=== PATIENT | female | born 1950 | race Caucasian/White ===

== ENCOUNTER → 2017-09-29 15:15 | Outpatient (CLI) | payer MEDICARE, OTHER, SELFPAY ==
--- NOTE | 2017-09-29 15:19 | DI.RAD.S_ITS ---
PROCEDURE: XR CHEST 2V INDICATIONS: 67 y/o woman with right-sided chest pain, perceived to be in lung TECHNIQUE: 2 views of the chest were acquired. COMPARISON: None. FINDINGS: Surgical changes and devices: None. Lungs and pleura: No pleural effusions or pneumothorax. Lungs are clear. Mediastinum: Mediastinal contours are normal. Heart size is normal. Bones and chest wall: Old right fourth rib fracture is noted. No suspicious bony abnormalities. Soft tissues appear unremarkable. IMPRESSION: No acute cardiopulmonary disease. Old right fourth rib fracture. Dictated by: Aretha Gonzalez M.D. on 09/29/2017 at 16:11 Approved by: Aretha Gonzalez M.D. on 09/29/2017 at 16:14
== END ==
PROVIDERS: PCP Physician Assistant; Visit Provider Physician Assistant
DX: R07.9 Chest pain, unspecified (principal)
CPT/HCPCS: 71046

== ENCOUNTER → 2017-11-06 14:12 | Outpatient (CLI) | payer MEDICARE, OTHER, SELFPAY ==
--- NOTE | 2017-11-06 | DI.MG.S_ITS ---
BILATERAL DIGITAL DIAGNOSTIC MAMMOGRAM 3D/2D: 11/06/2017 CLINICAL: Right breast lump and pain. No prior exams were available for comparison. The tissue of both breasts is heterogeneously dense. This may lower the sensitivity of mammography. There is a 2.8 cm irregular mass with an indistinct margin and calcifications in the right breast upper outer aspect middle depth. This correlates as palpated, with a triangular marker overlying the upper outer right breast at site of palpable concern. There is architectural distortion associated with the mass. There also is a 1.6 cm oval mass posterior and superior to the mass described above, with an indistinct margin and possibly in the right axillary tail. There is a 1.5 cm oval mass with an indistinct margin in the left breast upper inner aspect middle depth. There is a biopsy clip associated with the mass. No other significant masses or calcifications are seen in either breast. IMPRESSION: INCOMPLETE: NEEDS ADDITIONAL IMAGING EVALUATION 1) The 2.8 cm irregular mass in the right breast upper outer aspect middle depth is consistent with carcinoma and is indeterminate. An ultrasound is recommended. 2) The 1.6 cm oval mass in the right axillary tail is consistent with carcinoma and is indeterminate. An ultrasound is recommended. 3) The 1.5 cm oval mass in the left breast upper inner aspect middle depth has been previously biopsied. An ultrasound is recommended for re-evaluation. This exam was interpreted at Station ID: [id number]. NOTE: For mammograms, a report in lay terms will be sent to the patient. Approximately 15% of breast malignancies will not be visualized mammographically. In the management of a palpable breast mass, a negative mammogram must not discourage biopsy of a clinically suspicious lesion. Electronically Signed By: Michael Mary M.D. ecl/:11/06/2017 18:37:42 letter sent: Additional Imaging Needed ACR BI-RADS Category 0: Incomplete [id number]
--- NOTE | 2017-11-06 | DI.US.S_ITS ---
ULTRASOUND OF RIGHT BREAST: 11/06/2017 CLINICAL: Patient returns for additional imaging over a suspected mass in the right breast. Comparison is made to exam dated: 11/06/2017 mammogram - [facility]. Real-time and Doppler ultrasound of the right breast were performed. Whitmore scale images of the real-time examination were reviewed. There is a 1.7 cm x 1.5 cm x 2.4 cm irregular mass with a spiculated margin in the right breast at 10 o'clock middle depth 8 cm from the nipple. This irregular mass is hypoechoic. This correlates as palpated and with mammography findings. Color flow imaging demonstrates that there is increased vascularity. There also is a 1 cm x 0.9 cm x 0.9 cm oval mass with a circumscribed margin in the right breast at 1 o'clock posterior depth 8 cm from the nipple. This oval mass is hypoechoic. This mass is located posterior and lateral to the above described mass. Ultrasound evaluation of the right axilla demonstrates morphologically normal lymph nodes. IMPRESSION: HIGHLY SUGGESTIVE OF MALIGNANCY - FOLLOW-UP RECOMMENDED 1) The 1.7 cm x 1.5 cm x 2.4 cm irregular mass in the right breast at 10 o'clock middle depth is consistent with carcinoma and is highly suggestive of malignancy. An ultrasound guided biopsy is recommended. 2) The 1 cm x 0.9 cm x 0.9 cm oval mass in the right breast at 10 o'clock posterior depth is consistent with carcinoma and is highly suggestive of malignancy. An ultrasound guided biopsy is recommended. 3) No right axillary lymphadenopathy identified. These results and recommendations for biopsy were discussed with the patient by [facility] radiologist Dr. Spencer Azevedo at the time of the exam. This exam was interpreted at Station ID: [id number]. Electronically Signed By: Michael Mary M.D. ecl/:11/06/2017 18:52:14 letter sent: Biopsy Required Ultrasound BI-RADS: 5 Highly suggestive of malignancy
--- NOTE | 2017-11-06 16:10 | DI.US.S_ITS ---
ULTRASOUND OF LEFT BREAST: 11/06/2017 CLINICAL: Patient returns for additional imaging over a suspected mass in the left breast. at site of previous biopsy 18 years ago. Comparison is made to exam dated: 11/06/2017 [facility]. Real-time and Doppler ultrasound of the left breast were performed. Whitmore scale images of the real-time examination were reviewed. There is a 2 cm x 1.2 cm x 1 cm irregular mass with an indistinct margin in the left breast at 10 o'clock 6 cm from the nipple. This irregular mass is hypoechoic, and has a taller than wide configuration. There is an associated biopsy clip. Color flow imaging demonstrates that there is increased vascularity in surrounding tissue. IMPRESSION: INCOMPLETE: NEEDS ADDITIONAL IMAGING EVALUATION - FOLLOW-UP RECOMMENDED The 2 cm x 1.2 cm x 1 cm irregular mass in the left breast is indeterminate and demonstrates an associated biopsy clip on mammography, but no prior comparison imaging is available. This mass is at a low suspicion for malignancy given its appearance, particularly given the findings on right breast ultrasound and mammography performed concurrently. Biopsy of this lesion is deferred pending pathology results of the masses seen on right breast ultrasound. Correlation with outside prior films and ultrasounds recommended; an addendum to this report can be issued if prior comparison exams become available for review. This exam was interpreted at Station ID: [id number]. Electronically Signed By: Michael Mary M.D. ecl/:11/07/2017 06:43:50 Entry: - 11/07/2017 06:43:50 letter sent: Comparison Films Needed Ultrasound BI-RADS: 0 Indeterminate
== END ==
PROVIDERS: Visit Provider Physician Assistant
DX: R92.8 Other abnormal and inconclusive findings on diagnostic imaging of breast (principal); N63.11 Unspecified lump in the right breast, upper outer quadrant; N63.22 Unspecified lump in the left breast, upper inner quadrant; N64.4 Mastodynia
CPT/HCPCS: 76642; 77066; G0279

== ENCOUNTER → 2017-11-08 11:02 | Outpatient (CLI) | payer MEDICARE, OTHER, SELFPAY ==
[2017-11-08 12:39] LABS: Alanine Aminotransferase 46 IU/L (9-52); Albumin 4.5 g/dL (3.5-5.0); Albumin Globulin Ratio 1.6 (1.0-2.8); Alkaline Phosphatase 72 U/L (38-126); Aspartate Aminotransferase 43 IU/L (14-36); BUN Creatinine Ratio 12.9 (6-22); Bilirubin Total 0.7 mg/dL (0.2-1.3); Blood Urea Nitrogen 9 mg/dL (7-17); Calcium 9.6 mg/dL (8.4-10.2); Carbon Dioxide 29 mmol/L (22-32); Chloride 100 mmol/L (98-107); Cholesterol 260 mg/dL (140-199); Estimated Glomerular Filt Rate > 60.0 mL/min (>60); Globulin 2.9 g/dL (1.7-4.1); Glucose 108 mg/dL (80-110); HDL Cholesterol 79 mg/dL (40-60); HEMOLYSIS < 15 (0-50); LDL Cholesterol Calculated 152 mg/dL (<100); Potassium 4.1 mmol/L (3.4-5.1); Sodium 139 mmol/L (137-145); Total Protein 7.4 g/dL (6.3-8.2); Triglycerides 145 mg/dL (35-150)
[2017-11-08 12:56] LABS: Thyroid Stimulating Hormone 1.92 uIU/mL (0.47-4.68)
[2017-11-08 15:37] LABS: Microalbumi Creatinin Ratio Ur 19.1 ug/mg CR (<30); Microalbumin Urine Random 2.3 mg/dL (0-1.6)
== END ==
PROVIDERS: Visit Provider Physician Assistant
DX: E78.5 Hyperlipidemia, unspecified (principal); I10 Essential (primary) hypertension
CPT/HCPCS: 36415; 80053; 80061; 82043; 82570; 84443

== ENCOUNTER → 2017-11-13 13:40 | Outpatient (CLI) | payer MEDICARE, OTHER, SELFPAY ==
--- NOTE | 2017-11-13 | PATH_ITS ---
[facility] Accession Number: [id number] . 01 Material submitted: . PART A: LARGE RIGHT BREAST MASS PART B: SMALL RIGHT BREAST MASS . 01 Clinical history: . A: LARGE RIGHT BREAST MASS 10:00 8 CM FN B: SMALL RIGHT BREAST MASS 10:00 8CM FN . 02 Diagnosis: A. Right Breast Needle Core Biopsy (Large Tumor): Infiltrating ductal carcinoma with the following features: 1. Tumor size: Largest single focus measures 1.5 cm (all six cores involved with tumor). 2. Tumor grade: [place] grade 2 of 3 (score 6 of 9). Nuclear grade: Intermediate (score 2 of 3). Mitotic rate: Low (score 1 of 3). Tubular differentiation: Absent (score 3 of 3). 3. In situ carcinoma: Not identified. 4. Lymph/vascular invasion: Negative. 5. Hormone receptor studies: Estrogen receptor: Positive (100% cells staining with strong intensity). Progesterone receptor: Positive (10%-20% of cells staining with moderate intensity). HER-2/cisco: Negative (0 score). . B. Right Breast Needle Core Biopsy (Small Tumor): Infiltating ductal carcinoma with the following features: 1. Tumor size: Largest single area of invasion measures 1 cm (all six cores involved with tumor). 2. Tumor grade: [place] grade 2 of 3 (score 6 of 9). Nuclear grade: Intermediate (score 2 of 3). Mitotic rate: Low (score 1 of 3). Tubular differentiation: Absent (score 3 of 3). 3. In situ carcinoma: Not identified. 4. Lymph/vascular invasion: Not identified. 5. Hormone receptor studies: Estrogen receptor: Positive (100% of cells staining with strong intensity). Progesterone receptor: Negative (0% of cells staining). HER-2/cisco: Negative (score 0). [facility] . 02 Electronically signed: . Reilly Alvarado MD, Pathologist NPI- [id number] . 01 Gross description: . (A) Received in formalin, labeled BX breast PERC W VAC device, are six core biopsies of fibrofatty tissue (lengths-each approximately 1.5 cm, diameters-each approximately 2.0 cm). Entirely submitted in cassette A1. (B) Received in formalin, labeled BX breast PERC W VAC device, are six core biopsies of fibrous rubbery tissue (lengths-0.5 cm up to 1.4 cm, diameters-0.1 cm up to 0.2 cm) and multiple fragments of hemorrhagic tissue (2.5 x 2.2 x 0.5 cm in aggregate). The core biopsies are submitted in cassette B1 and the remaining hemorrhagic tissue is entirely submitted in cassette B2. . Note: Approximate total fixation time in formalin for both specimens - 30 hours, calculated using a collection date of 11/13/2017 with collection times of 1450 and 1458, respectively. ([id number]) /MRV . 02 Microscopic: . Sections are of needle core biopsies from the right breast which are stated to be from a large tumor and a small tumor (parts A and B). The histologic characteristics of the tumor are essentially similar in both specimens. The tumor cells are of intermediate size with hyperchromatic nuclei and sparse cytoplasm. The cells infiltrate in a single file pattern as well as in small groups and in part B there are broad sheets of tumor cells. Because of this pattern immunohistochemistry is performed in order to rule out the possibility of lobular carcinoma (see immunohistochemistry results). The tumor cell nuclei are considered to be of intermediate grade. There is a low mitotic rate and tubular differentiation is absent. There is no evidence of vascular channel invasion or lymphatic channel invasion and there is no in situ carcinoma present in either specimen. . IMMUNOHISTOCHEMISTRY RESULTS: E-cadherin: Strongly positive in both parts A and B, which rules against a lobular carcinoma. . 02 Pathologist provided ICD-10: C50.911 . 02 CPT . 997796, [id number], Z23446, [id number] Performed at: 01 [facility] [address] [place] [address] [address], [place], [place] [id number] MD Caleb Cheng MD Phone: [phone] Performed at: 02 [facility] [id number] [place] [id number] MD Parker Card MD Phone: [phone]
--- NOTE | 2017-11-13 13:45 | DI.US.S_ITS ---
MULTIPLE ULTRASOUND GUIDED BIOPSIES RIGHT BREAST USING VACUUM DEVICE WITH MARKING DEVICES INSERTED AND POST MAMMOGRAPHIC AND ULTRASOUND IMAGIN11/13/2017 CLINICAL: Right breast mass x 2. PATIENT CONSENT: Risks (minor bleeding, infection, vasovagal reaction and repeat procedure), benefits and alternatives were explained to the patient and written informed consent was obtained. Correlation is made to exams dated[facility]2017 [facility] An [facility] guided biopsy using real-time ultrasound was performed for the mass located in the right breast at 10 o'clock middle depth. The skin was prepped in the usual manner. Local anesthetic was administered to the access site. A small incision was made in the breast. The abnormality was approached from the lateral aspect. A biopsy needle was placed adjacent to the abnormality under ultrasound guidance. Once the needle was documented to be in the correct location, a specimen was obtained using the Mammotome biopsy system.However due to the density of the mass additoinal samples were obtained with a 16 G device. A celero clip was inserted into the biopsy cavity. Post procedure mammographic and ultrasound imaging demonstrates the clip at the targeted area. The specimen was sent to the laboratory for pathological analysis. A second ultrasound guided biopsy using real-time ultrasound was performed for the mass located in the right breast at 10 o'clock posterior depth. The skin was prepped in the usual manner. Local anesthetic was administered to the access site. A small incision was made in the breast. The abnormality was approached from the lateral aspect. A biopsy needle was placed adjacent to the abnormality under ultrasound guidance. Once the needle was documented to be in the correct location, a specimen was obtained using the Mammotome biopsy system. A 4HM clip was inserted into the biopsy cavity. Post procedure mammographic and ultrasound imaging demonstrates the clip at the targeted area. The specimen was sent to the laboratory for pathological analysis. IMPRESSION: ULTRASOUND GUIDED BIOPSY MALIGNANT Ultrasound guided biopsy of the mass in the right breast at 10 o'clock middle depth was successful with no apparent post procedure complications. Final pathology of this lesion identified infiltrating ductal carcinoma. This is concordant with imaging. Surgical and oncologic consultation and follow-up recommended for potential excision and treatment. These results will be communicated to the patient's referring provider. Ultrasound guided biopsy of the mass in the right breast at 10 o'clock posterior depth was successful with no apparent post procedure complications. Final pathology of this lesion identified infiltrating ductal carcinoma. This is concordant with imaging. Surgical and oncologic consultation and follow-up recommended for potential excision and treatment. These results will be communicated to the patient's referring provider. A mass was identified in the left breast and described on left breast ultrasound of 11/06/2017. Consider further evaluation or biopsy if there is clinical concern for this left breast mass being an additional site of disease. This exam was interpreted at Station ID: [id number]. Donal Mary M.D. ,ecl/:11/20/2017 18:31:35
--- NOTE | 2017-11-13 13:45 | DI.MG.S_ITS ---
UNILATERAL RIGHT DIGITAL DIAGNOSTIC MAMMOGRAM POST-NEEDLE BIOPSY: 11/13/2017 CLINICAL: Post right breast ultrasound biopsy clip placement imaging. Comparison is made to exam dated: 11/06/2017 mammogram - [facility]. The tissue of the right breast is heterogeneously dense. This may lower the sensitivity of mammography. IMPRESSION: POST PROCEDURE MAMMOGRAM FOR MARKER PLACEMENT There are two post biopsy markers in the appropriate locations. This exam was interpreted at Station ID: [id number]. NOTE: For mammograms, a report in lay terms will be sent to the patient. Approximately 15% of breast malignancies will not be visualized mammographically. In the management of a palpable breast mass, a negative mammogram must not discourage biopsy of a clinically suspicious lesion. Electronically Signed By: Donal Prado M.D. cj/:11/14/2017 08:07:45 Entry: - 11/14/2017 08:07:45 ACR BI-RADS Category Post-procedure mammogram for marker placement
== END ==
PROVIDERS: Visit Provider Physician Assistant
DX: R92.8 Other abnormal and inconclusive findings on diagnostic imaging of breast (principal); N63.10 Unspecified lump in the right breast, unspecified quadrant
CPT/HCPCS: 19083; 19084; 77065

== ENCOUNTER → 2017-11-25 10:36 | Outpatient (CLI) | payer MEDICARE, OTHER, SELFPAY ==
--- NOTE | 2017-11-25 11:02 | DI.NM.S_ITS ---
PROCEDURE: NM BONE SCAN WHOLE BODY RADIOPHARMACEUTICAL: 20.2 mCi Tc-99m MDP IV. INDICATIONS: BREAST CANCER TECHNIQUE: Delayed whole-body scintigrams were obtained approximately 3-4 hours after intravenous injection of radiotracer. Anterior and posterior views were acquired from vertex to feet. Additional left and right oblique views of the thorax were obtained. COMPARISON: [facility], CT, CT CHEST WO CON, 11/25/2017, 11:21. FINDINGS: Foci of increased radiotracer uptake noted in the lateral right fourth rib in the anterolateral right sixth rib corresponding to subacute fractures identified the prior CT scan. There is increased radiotracer uptake in the T10 vertebral body which corresponds to 1.9 cm lucency identified by prior CT scan concerning for metastatic disease. Focus of increased radiotracer uptake noted in the base of the right pedicle of the T11 vertebral body which corresponds to 1.2 cm lucency is identified a prior CT scan concerning for metastatic disease. Increased radiotracer uptake noted in the first MTP joint of the left foot likely represents osteoarthritis. No abnormal soft tissue uptake. Activity in the kidneys is normal and symmetric. IMPRESSION: 1. Abnormal radiotracer uptake involving the T10 and T11 vertebral bodies concerning for metastatic disease. 2. Increased radiotracer uptake in the first MTP joint of the left foot likely related to osteoarthritis. Recommend correlation with plain film radiographs. 3. Subacute right fourth and sixth rib fractures. Dictated by: Margarita Brown MD, PhD on 11/26/2017 at 9:11 Approved by: Margarita Brown MD, PhD on 11/26/2017 at 9:15
--- NOTE | 2017-11-25 11:14 | DI.CT.S_ITS ---
PROCEDURE: CT SOFT TISSUE NECK WO CON INDICATIONS: Staging breat ca TECHNIQUE: Non-contrast 3.0 mm axial sections acquired from the sella to the aortic arch. Additional oblique axial 3.0 mm sections acquired through the pharynx. 3 mm thick coronal and sagittal reformats were generated. For radiation dose reduction, the following was used: automated exposure control. COMPARISON: None. FINDINGS: Image quality: Excellent. Lymph nodes: No enlarged lymph nodes seen throughout the neck. Prominent right axillary lymph nodes are seen, better evaluated on CT of chest study. Vessels: Non-opacified vessels appear normal in caliber. Neck spaces: The oropharynx, nasopharynx, and pharynx demonstrate no mucosal lesions. The vocal cords, false vocal cords, pyriform sinuses, epiglottis, vallecula, and tongue base all appear normal. Extramucosal spaces appear unremarkable. Glands: The parotid and submandibular glands appear normal, without stones. Thyroid gland is within normal limits. Miscellaneous: Visualized brain and orbits appear normal. Lung apices appear clear. Superficial soft tissues appear normal. IMPRESSION: 1. No adenopathy is seen in bilateral neck soft tissue. No gross neck soft tissue mass. Airway is patent. 2. Prominent right axillary lymph node that evaluated on CT of chest study. Please also refer to chest CT finding of possible pathologic fracture involving right lateral fourth rib. Dictated by: Paddy Jett M.D. on 11/25/2017 at 12:10 Approved by: Paddy Jett M.D. on 11/25/2017 at 12:13
--- NOTE | 2017-11-25 11:14 | DI.CT.S_ITS ---
PROCEDURE: CT CHEST WO CON INDICATIONS: staging breat ca TECHNIQUE: Noncontrast 5 mm thick sections acquired from the pulmonary apices to the posterior costophrenic angles. 7 mm thick coronal and sagittal MIP reformats were then acquired. For radiation dose reduction, the following was used: automated exposure control, adjustment of mA and/or kV according to patient size. COMPARISON: None. FINDINGS: Image quality: Excellent. Lungs and pleura: There is biapical scarring. Atelectasis/scarring in periphery of left lower lobe is also seen. No abnormal airspace opacities. No pleural effusions or pneumothorax. Central and peripheral airways are patent and normal in caliber. Mediastinum: Heart size is normal. No pericardial effusion. No mediastinal adenopathy by size criteria. Thoracic aorta and central pulmonary arteries are normal in size. Esophagus is normal in caliber. Small hiatal hernia is seen. Bones and chest wall: Ill-defined lobulated soft tissue density is seen in upper outer portion of right breast containing a surgical clip likely related to patient's history of breast cancer. Prominent soft tissue lesion in right axilla is seen and measures 3.2 x 2.6 cm in size and likely represent metastatic adenopathy. Additional mildly enlarged right axillary lymph nodes are seen measures up to 1 cm in short axis diameter. No gross left axillary adenopathy is seen. No gross supraclavicular adenopathy. Examination of osseous structures shows possible cortical destruction involving right posterior lateral fourth rib with subacute appearing fracture involving more lateral and anterior aspect of right fourth rib. There is also a lytic and expansile lesion involving right anterior lateral sixth rib. No other suspicious bony lesion is noted. Abdomen: Visualized upper abdominal solid organs and bowel loops appear normal in the absence of contrast. IMPRESSION: 1. Lobulated soft tissue mass involving upper outer portion of right breast, which likely related to patient's known breast cancer. Prominent right axillary lymph nodes as described above suspicious for metastatic axillary adenopathy. No mediastinal or hilar adenopathy. No supraclavicular or left axillary adenopathy. 2. Scarring/atelectasis scattered in bilateral lung apices and periphery of left lower lobe. No definite metastatic lesion is seen in bilateral lung patiño. 3. Lytic lesions involving right posterior lateral fourth rib and subacute appearing fracture involving more anterior and lateral portion of right fourth rib suspicious for metastatic disease with subsequent pathologic fracture. Lytic and expansile lesion involving right anterior lateral sixth rib, which is also concerning for metastatic bony lesion. Dictated by: Paddy Jett M.D. on 11/25/2017 at 11:48 Approved by: Paddy Jett M.D. on 11/25/2017 at 12:08
== END ==
PROVIDERS: PCP Physician Assistant; Visit Provider Internal Medicine Hematology & Oncology
DX: C50.411 Malignant neoplasm of upper-outer quadrant of right female breast (principal); R59.0 Localized enlarged lymph nodes; M89.9 Disorder of bone, unspecified; J98.11 Atelectasis; S22.41XA Multiple fractures of ribs, right side, initial encounter for closed fracture
CPT/HCPCS: 70490; 71250; 78306; A9503

== ENCOUNTER → 2017-12-11 14:04 | Outpatient (CLI) | payer MEDICARE, OTHER, SELFPAY ==
--- NOTE | 2017-12-11 | DI.MRI.S_ITS ---
PROCEDURE: MR THORACIC SPINE WO/W CON INDICATIONS: BREAST CANCER TECHNIQUE: Noncontrast sagittal T1 spin echo and T2 fast spin echo, sagittal STIR, axial T1 and T2 fast spin echo through the thoracic spine. After the administration of contrast, axial and sagittal T1 spin echo with fat saturation through the thoracic spine. COMPARISON: [facility], CR, XR CHEST 2V, 09/29/2017, 15:01. [facility], CT, CT CHEST WO CON, 11/25/2017, 11:21. [facility], NM, NM BONE SCAN WHOLE BODY, 11/25/2017, 14:18. FINDINGS: Image quality: Excellent. Alignment and curvature: Accentuated thoracic kyphosis is seen. No focal AP alignment abnormality is seen. Marrow: There is abnormal bone marrow signal seen at several cervical bodies, although most notably within the anterior T4 level, the inferior T9 level, the majority of the T10 vertebral body, the posterior superior T11 level, and the anterior superior L2 level. There is also involvement of the posterior elements of at least T10 and T11. At these sites, there is decreased signal seen on T1 weighted imaging, mixed-signal on T2-weighted imaging, and increased signal on STIR imaging. Abnormal enhancement can be seen at these sites. Spinal cord: Visualized spinal cord is of normal signal and size, without abnormal enhancement. Paraspinous soft tissues: No paravertebral masses or abnormal enhancement. Miscellaneous: Central canal and foramina appear widely patent at all scanned levels. IMPRESSION: Multiple foci of metastatic disease are seen, which are most prominent at the T10 and T11 levels. The extent of metastatic disease appears greater on this MRI than it did on the recent prior nuclear medicine bone scan. Dictated by: Tim May M.D. on 12/11/2017 at 15:11 Approved by: Tim May M.D. on 12/11/2017 at 15:22
[2017-12-11 14:36] LABS: BUN Creatinine Ratio 15.7 (6-22); Blood Urea Nitrogen 11 mg/dL (7-17); Estimated Glomerular Filt Rate > 60.0 mL/min (>60)
== END ==
PROVIDERS: PCP Physician Assistant; Visit Provider Internal Medicine Hematology & Oncology
DX: C50.911 Malignant neoplasm of unspecified site of right female breast (principal); C79.51 Secondary malignant neoplasm of bone; Z98.890 Other specified postprocedural states
CPT/HCPCS: 36415; 72157; 82565; 84520; A9579

== ENCOUNTER → 2018-04-24 13:16 | Outpatient (CLI) | payer MEDICARE, OTHER, SELFPAY ==
--- NOTE | 2018-04-24 13:18 | DI.RAD.S_ITS ---
This blank DEXA report has been sent in error by the PACS system. The correct and complete report will be forthcoming in 1-2 days. Thank you for your patience and understanding. Dictated by: Paddy Jett M.D. on 04/24/2018 at 14:24 Approved by: Paddy Jett M.D. on 04/24/2018 at 14:24
== END ==
PROVIDERS: PCP Physician Assistant; Visit Provider Internal Medicine Hematology & Oncology
DX: M85.852 Other specified disorders of bone density and structure, left thigh (principal); Z78.0 Asymptomatic menopausal state; C50.919 Malignant neoplasm of unspecified site of unspecified female breast; Z79.811 Long term (current) use of aromatase inhibitors; Z87.891 Personal history of nicotine dependence
CPT/HCPCS: 77080

== ENCOUNTER → 2018-05-02 12:14 | Outpatient (CLI) | payer MEDICARE, OTHER, SELFPAY ==
--- NOTE | 2018-05-02 12:16 | DI.US.S_ITS ---
PROCEDURE: US CAROTID DOPPLER BI INDICATIONS: BILATERAL CAROTID ATHEROMA SEEN ON PANOREX AT DENTIST TECHNIQUE: Color and pulse Doppler interrogation was performed of both carotid systems, with image documentation and velocity measurements. COMPARISON: None. FINDINGS: Stenosis calculations are based on SRU (Society of Radiologists in Ultrasound) criteria. Right side: Brachial blood pressure: 145/86 mm Hg. Common carotid artery peak systolic velocity: 128 cm/sec. Internal carotid artery peak systolic velocity: 119 cm/sec. Internal carotid artery end diastolic velocity: 36 cm/sec. External carotid artery peak systolic velocity: 90 cm/sec. ICA/CCA peak systolic ratio: 0.9. Whitmore scale imaging description: Moderate scattered plaque. Percent internal carotid artery stenosis: Less than 50%. Vertebral artery: Flow direction is antegrade. Left side: Brachial blood pressure: 113/80 mm Hg. Common carotid artery peak systolic velocity: 91 cm/sec. Internal carotid artery peak systolic velocity: 71 cm/sec. Internal carotid artery end diastolic velocity: 25 cm/sec. External carotid artery peak systolic velocity: 97 cm/sec. ICA/CCA peak systolic ratio: 18. Whitmore scale imaging description: Minimal plaque. Percent internal carotid artery stenosis: Less than 50%. Vertebral artery: Retrograde flow. IMPRESSION: Less than 50% bilateral internal carotid artery stenosis. Asymmetric blood pressures and retrograde flow within the left vertebral artery. Subclavian steal phenomenon cannot be excluded. Correlate clinically. Dictated by: Joshua COBB Interpreted: Koffi Fung MD on 05/02/2018 at 16:32 Approved by: Koffi Fung M.D. on 05/02/2018 at 17:23
== END ==
PROVIDERS: PCP Physician Assistant; Visit Provider Physician Assistant
DX: I65.23 Occlusion and stenosis of bilateral carotid arteries (principal); I10 Essential (primary) hypertension
CPT/HCPCS: 93880

== ENCOUNTER → 2018-06-09 14:01 | Outpatient (CLI) | payer MEDICARE, OTHER, SELFPAY ==
[2018-06-09 15:32] LABS: Add Manual Diff / Slide Review NO; Basophils Absolute Auto 0 /uL (0-100); Basophils Percent Auto 0.6 % (0-2); Eosinophils Absolute Auto 100 /uL (0-450); Eosinophils Percent Auto 1.6 % (2-4); Hematocrit 47.8 % (36-46); Hemoglobin 16.2 g/dL (12.0-16.0); Lymphocytes Absolute Auto 1200 /uL (1100-4500); Lymphocytes Percent Auto 17.8 % (25-40); Mean Corpuscular HGB Conc 33.8 % (30-36); Mean Corpuscular Hemoglobin 32.1 PG (26-34); Monocytes Absolute Auto 600 /uL (0-900); Monocytes Percent Auto 8.8 % (3-14); Neutrophils Absolute Auto 4700 /uL (1500-7000); Neutrophils Percent Auto 71.2 % (50-75); Platelet Count 241 X10^3/uL (150-400); Red Blood Cell Count 5.04 X10^6/uL (4.0-5.2); Red Cell Distribution Width 12.7 % (11.6-14.8); White Blood Cell Count 6.6 X10^3/uL (4.5-11.0)
[2018-06-09 15:39] LABS: Alanine Aminotransferase 42 IU/L (9-52); Albumin 4.9 g/dL (3.5-5.0); Albumin Globulin Ratio 1.8 (1.0-2.8); Alkaline Phosphatase 61 U/L (38-126); Aspartate Aminotransferase 39 IU/L (14-36); BUN Creatinine Ratio 23.3 (6-22); Bilirubin Total 0.3 mg/dL (0.2-1.3); Blood Urea Nitrogen 14 mg/dL (7-17); Calcium 9.9 mg/dL (8.4-10.2); Carbon Dioxide 25 mmol/L (22-32); Chloride 99 mmol/L (98-107); Estimated Glomerular Filt Rate > 60.0 mL/min (>60); Globulin 2.7 g/dL (1.7-4.1); Glucose 95 mg/dL (80-110); HEMOLYSIS < 15 (0-50); Sodium 136 mmol/L (137-145); Total Protein 7.6 g/dL (6.3-8.2)
[2018-06-12 10:18] LABS: CA 15-3 25 U/mL (< 32)
== END ==
PROVIDERS: PCP Physician Assistant; Visit Provider Internal Medicine Hematology & Oncology
DX: C50.911 Malignant neoplasm of unspecified site of right female breast (principal)
CPT/HCPCS: 80053; 82378; 85025; 86300

== ENCOUNTER → 2018-11-07 09:45 | Outpatient (CLI) | payer MEDICARE, OTHER, SELFPAY ==
[2018-11-07 10:48] LABS: Add Manual Diff / Slide Review NO; Basophils Absolute Auto 0 /uL (0-100); Basophils Percent Auto 0.6 % (0-2); Eosinophils Absolute Auto 100 /uL (0-450); Eosinophils Percent Auto 1.9 % (2-4); Hematocrit 41.6 % (36-46); Hemoglobin 14.2 g/dL (12.0-16.0); Lymphocytes Absolute Auto 1000 /uL (1100-4500); Mean Corpuscular Hemoglobin 31.5 PG (26-34); Mean Corpuscular Volume 92.5 fL (80-100); Monocytes Absolute Auto 500 /uL (0-900); Neutrophils Absolute Auto 3300 /uL (1500-7000); Neutrophils Percent Auto 66.5 % (50-75); Platelet Count 202 X10^3/uL (150-400); Red Blood Cell Count 4.49 X10^6/uL (4.0-5.2); Red Cell Distribution Width 13.3 % (11.6-14.8)
[2018-11-07 11:15] LABS: HEMOLYSIS < 15 (0-50); Potassium 4.6 mmol/L (3.4-5.1)
[2018-11-07 11:17] LABS: Alanine Aminotransferase 33 IU/L (9-52); Albumin 4.4 g/dL (3.5-5.0); Albumin Globulin Ratio 1.8 (1.0-2.8); Alkaline Phosphatase 56 U/L (38-126); Aspartate Aminotransferase 35 IU/L (14-36); BUN Creatinine Ratio 16.7 (6-22); Bilirubin Total 0.5 mg/dL (0.2-1.3); Blood Urea Nitrogen 10 mg/dL (7-17); Calcium 9.4 mg/dL (8.4-10.2); Carbon Dioxide 26 mmol/L (22-32); Chloride 102 mmol/L (98-107); Estimated Glomerular Filt Rate > 60.0 mL/min (>60); Globulin 2.5 g/dL (1.7-4.1); Glucose 102 mg/dL (80-110); Sodium 137 mmol/L (137-145); Total Protein 6.9 g/dL (6.3-8.2)
[2018-11-07 11:18] LABS: Cholesterol 311 mg/dL (140-199); HDL Cholesterol 105 mg/dL (40-60); LDL Cholesterol Calculated 180 mg/dL (<100); Triglycerides 132 mg/dL (35-150)
[2018-11-07 11:42] LABS: Carcinoembryonic Antigen 2.8 ng/mL (0.1-3.0)
[2018-11-28 13:04] LABS: Cancer Antigen 27.29 35
[2018-11-28 13:05] LABS: CA 15-3 14
== END ==
PROVIDERS: PCP Physician Assistant; Visit Provider Internal Medicine Hematology & Oncology
DX: C50.911 Malignant neoplasm of unspecified site of right female breast (principal); I10 Essential (primary) hypertension
CPT/HCPCS: 36415; 80053; 80061; 82378; 85025; 86300

== ENCOUNTER → 2019-02-19 14:12 | Outpatient (CLI) | payer MEDICARE, OTHER, SELFPAY ==
[2019-02-19 14:42] LABS: Add Manual Diff / Slide Review NO; Basophils Absolute Auto 0 /uL (0-100); Basophils Percent Auto 0.4 % (0-2); Eosinophils Absolute Auto 0 /uL (0-450); Eosinophils Percent Auto 0.4 % (2-4); Hematocrit 43.7 % (36-46); Hemoglobin 15.1 g/dL (12.0-16.0); Lymphocytes Absolute Auto 900 /uL (1100-4500); Mean Corpuscular HGB Conc 34.6 % (30-36); Mean Corpuscular Hemoglobin 31.8 PG (26-34); Mean Corpuscular Volume 92.1 fL (80-100); Monocytes Absolute Auto 600 /uL (0-900); Monocytes Percent Auto 7.2 % (3-14); Neutrophils Absolute Auto 7000 /uL (1500-7000); Platelet Count 208 X10^3/uL (150-400); Red Blood Cell Count 4.75 X10^6/uL (4.0-5.2); Red Cell Distribution Width 13.6 % (11.6-14.8); White Blood Cell Count 8.6 X10^3/uL (4.5-11.0)
[2019-02-19 14:51] LABS: Alanine Aminotransferase 46 IU/L (<35); Albumin 4.8 g/dL (3.5-5.0); Albumin Globulin Ratio 1.6 (1.0-2.8); Alkaline Phosphatase 68 U/L (38-126); Aspartate Aminotransferase 45 IU/L (14-36); BUN Creatinine Ratio 13.3 (6-22); Bilirubin Total 0.6 mg/dL (0.2-1.3); Blood Urea Nitrogen 8 mg/dL (7-17); Calcium 9.6 mg/dL (8.4-10.2); Carbon Dioxide 25 mmol/L (22-32); Chloride 97 mmol/L (98-107); Estimated Glomerular Filt Rate > 60.0 mL/min (>60); Glucose 147 mg/dL (80-110); HEMOLYSIS 31 (0-50); Potassium 3.9 mmol/L (3.4-5.1); Sodium 135 mmol/L (137-145); Total Protein 7.8 g/dL (6.3-8.2)
[2019-02-19 15:21] LABS: Carcinoembryonic Antigen 3.4 ng/mL (0.1-3.0)
[2019-02-21 14:13] LABS: Cancer Antigen 27.29 21 U/mL (< 38)
[2019-02-21 17:41] LABS: CA 15-3 20 U/mL (< 32)
== END ==
PROVIDERS: PCP Physician Assistant; Visit Provider Internal Medicine Hematology & Oncology
DX: C50.911 Malignant neoplasm of unspecified site of right female breast (principal)
CPT/HCPCS: 36415; 80053; 82378; 85025; 86300

== ENCOUNTER → 2019-07-27 08:40 | Outpatient (CLI) | payer MEDICARE, OTHER, SELFPAY ==
[2019-07-27 09:22] LABS: Add Manual Diff / Slide Review NO; Basophils Absolute Auto 100 /uL (0-100); Basophils Percent Auto 1.2 % (0-2); Eosinophils Absolute Auto 100 /uL (0-450); Eosinophils Percent Auto 2.5 % (2-4); Hematocrit 42.3 % (36-46); Hemoglobin 14.4 g/dL (12.0-16.0); Lymphocytes Absolute Auto 1200 /uL (1100-4500); Lymphocytes Percent Auto 26.7 % (25-40); Mean Corpuscular Hemoglobin 32.3 PG (26-34); Monocytes Absolute Auto 400 /uL (0-900); Monocytes Percent Auto 8.6 % (3-14); Neutrophils Absolute Auto 2800 /uL (1500-7000); Platelet Count 182 X10^3/uL (150-400); Red Blood Cell Count 4.45 X10^6/uL (4.0-5.2); Red Cell Distribution Width 12.7 % (11.6-14.8); White Blood Cell Count 4.5 X10^3/uL (4.5-11.0)
[2019-07-27 09:35] LABS: Alanine Aminotransferase 26 IU/L (<35); Albumin 4.6 g/dL (3.5-5.0); Albumin Globulin Ratio 1.5 (1.0-2.8); Alkaline Phosphatase 65 U/L (38-126); Aspartate Aminotransferase 37 IU/L (14-36); BUN Creatinine Ratio 16.1 (6-22); Bilirubin Total 0.3 mg/dL (0.2-1.3); Blood Urea Nitrogen 10 mg/dL (7-17); Calcium 10.3 mg/dL (8.4-10.2); Carbon Dioxide 30 mmol/L (22-32); Chloride 102 mmol/L (98-107); Estimated Glomerular Filt Rate > 60.0 mL/min (>60); Glucose 106 mg/dL (80-110); HEMOLYSIS < 15 (0-50); Potassium 4.6 mmol/L (3.4-5.1); Sodium 140 mmol/L (137-145); Total Protein 7.6 g/dL (6.3-8.2)
[2019-07-27 09:35] LABS: Cholesterol 268 mg/dL (140-199); HDL Cholesterol 91 mg/dL (40-60); LDL Cholesterol Calculated 149 mg/dL (<100); Triglycerides 142 mg/dL (35-150)
[2019-07-27 09:42] LABS: Hemoglobin A1C% w Est Avg Glu 5.7 % (4.0-6.0)
[2019-07-27 10:05] LABS: Carcinoembryonic Antigen 2.6 ng/mL (0.1-3.0)
[2019-07-28 07:36] LABS: CA 15-3 21.3 U/mL (0.0-25.0)
[2019-08-01 01:28] LABS: Cancer Antigen 27.29 28.7 U/mL (0.0-38.6)
== END ==
PROVIDERS: PCP Physician Assistant; Referring Provider Internal Medicine Hematology & Oncology; Visit Provider Physician Assistant
DX: C50.911 Malignant neoplasm of unspecified site of right female breast (principal); R73.01 Impaired fasting glucose; E78.2 Mixed hyperlipidemia; I10 Essential (primary) hypertension
CPT/HCPCS: 36415; 80053; 80061; 82378; 83036; 85025; 86300

== ENCOUNTER → 2020-04-20 11:43 | Outpatient (CLI) | payer MEDICARE, OTHER, SELFPAY ==
[2020-04-20 12:56] LABS: Alanine Aminotransferase 41 IU/L (<35); Albumin 4.3 g/dL (3.5-5.0); Albumin Globulin Ratio 1.6 (1.0-2.8); Alkaline Phosphatase 81 U/L (38-126); Aspartate Aminotransferase 48 IU/L (14-36); Bilirubin Total 0.4 mg/dL (0.2-1.3); Bilirubin Unconjugated 0.3 mg/dL (0.0-1.1); Globulin 2.7 g/dL (1.7-4.1); HEMOLYSIS < 15 (0-50)
== END ==
PROVIDERS: PCP Nurse Practitioner Family; Referring Provider Nurse Practitioner Family; Visit Provider Nurse Practitioner Family
DX: E55.9 Vitamin D deficiency, unspecified (principal); R74.8 Abnormal levels of other serum enzymes
CPT/HCPCS: 36415; 80076; 82306

== ENCOUNTER → 2020-05-03 14:52 | Outpatient (CLI) | payer MEDICARE, OTHER, SELFPAY ==
--- NOTE | 2020-05-03 | DI.US.S_ITS ---
LIMITED ULTRASOUND OF LEFT BREAST AND AXILLA: 05/03/2020 CLINICAL: Patient returns today to evaluate an asymmetry in left breast. Comparison is made to exams dated: 05/03/2020 mammogram, 11/13/2017 mammogram, 11/13/2017 ultrasound biopsy, 11/06/2017 ultrasound, 11/06/2017 ultrasound, and 11/06/2017 mammogram - [facility]. Ultrasound of the left breast 10 o'clock, and axilla regions was performed. There is a 1.1 cm x 0.7 cm x 1.4 cm irregular mass in the left breast at 10 o'clock posterior depth 6 cm from the nipple. This mass appears stable compared to a prior ultrasound on 11/06/2017. Adjacent to this mass on image 11/15 there is a 2nd possibly spiculated area which may correspond with the spiculation that is seen on mammogram which also is adjacent to 2 masses which are stable compared to prior mammogram. IMPRESSION: INCOMPLETE: NEEDS ADDITIONAL IMAGING EVALUATION The 1.1 cm x 0.7 cm x 1.4 cm mass in the left breast mass appears stable compared to a prior ultrasound on 11/06/2017. Adjacent to this mass on image 11/15 there is a 2nd area which may correspond with the spiculation that is seen on mammogram and which corresponds with the hypermetabolic focus on PET scan Recommend MRI given these findings. This exam was interpreted at Station ID: [id number]. Electronically Signed By: Gerry Carr acr/:05/04/2020 11:01:34 copy to: IGNACIA VALENZUELA letter sent: Need MRI Ultrasound BI-RADS: 0 Indeterminate
--- NOTE | 2020-05-03 14:54 | DI.MG.S_ITS ---
BILATERAL DIGITAL DIAGNOSTIC MAMMOGRAM 3D/2D POST LUMPECTOMY: 05/03/2020 CLINICAL: Left breast mass. Comparison is made to exams dated: 11/13/2017 mammogram and 11/06/2017 mammogram - [facility]. The tissue of both breasts is heterogeneously dense. This may lower the sensitivity of mammography. There is a new mass with a spiculated margin in the left breast anterior depth medial region seen on the craniocaudal view only. There is a new mass with a spiculated margin in the left breast anterior depth medial region seen on the craniocaudal view only. There is a stable 1 cm x 0.2 cm asymmetry with a circumscribed margin in the left breast anterior depth medial region seen on the craniocaudal view only. Directly adjacent there is a stable 2 cm x 0.2 cm asymmetry with a circumscribed margin in the left breast middle depth central to the nipple seen on the craniocaudal view only. These were both seen on prior mammograms. The spiculated mass is new. IMPRESSION: INCOMPLETE: NEEDS ADDITIONAL IMAGING EVALUATION The new mass in the left breast anterior depth medial region seen on the craniocaudal view only is indeterminate. An ultrasound is recommended. This exam was interpreted at Station ID: [id number]. NOTE: For mammograms, a report in lay terms will be sent to the patient. Approximately 15% of breast malignancies will not be visualized mammographically. In the management of a palpable breast mass, a negative mammogram must not discourage biopsy of a clinically suspicious lesion. Electronically Signed By: Gerry Carr acr/:05/03/2020 16:42:23 copy to: IGNACIA MCMILLAN BI-RADS Category 0: Incomplete 3340F
== END ==
PROVIDERS: PCP Nurse Practitioner Family; Referring Provider Internal Medicine Hematology & Oncology; Visit Provider Internal Medicine Hematology & Oncology
DX: R92.8 Other abnormal and inconclusive findings on diagnostic imaging of breast (principal); N63.22 Unspecified lump in the left breast, upper inner quadrant; C50.411 Malignant neoplasm of upper-outer quadrant of right female breast; Z17.0 Estrogen receptor positive status [ER+]
CPT/HCPCS: 76642; 77066; G0279

== ENCOUNTER → 2020-05-12 08:32 | Outpatient (CLI) | payer MEDICARE, OTHER, SELFPAY ==
--- NOTE | 2020-05-12 08:35 | DI.MRI.S_ITS ---
BREAST MRI OF BOTH BREASTS: 05/12/2020 CLINICAL: Malignant neoplasm of unspecified site of Right breast; Unspecified lump in the left breast, unspecified quadrant. Comparison is made to exams dated: 05/03/2020 ultrasound, 05/03/2020 mammogram, 11/13/2017 mammogram, and 11/13/2017 ultrasound biopsy - [facility]. PROCEDURE: MR BREAST BI WO/W CON INDICATIONS: recent US of L breast reccomended MRI, hx of right breast CA TECHNIQUE: The patient was placed prone in a dedicated breast imaging coil. Precontrast axial STIR and 3D FLASH without fat saturation sequences were obtained. Both before and after bolus injection of contrast, sequential 1-minute axial 3D FLASH with fat saturation sequences for 3 time points, with subtraction images and maximum intensity projections (MIP's) generated. Delayed sagittal FLASH images with fat saturation were also obtained. Computer-aided detection, including computer algorithm analysis of MRI image data for lesion detection and characterization, pharmacokinetic analysis, with further physician review for interpretation, was performed. COMPARISON: [facility], US, US BREAST LT LIMITED, 05/03/2020, 16:24. FINDINGS: Image quality: Excellent. There is mild background parenchymal enhancement. Right breast: The right breast demonstrates no abnormal focus, mass, or abnormal enhancement. No axillary or internal mammary chain adenopathy. Left breast: In the left breast 12 o'clock position middle depth 6 centimeters from the nipple there is a 1.5 by 1.3 x 1.3 centimeter irregular spiculated mass which demonstrates post gadolinium enhancement which on dynamic images demonstrates type 3 malignant kinetics. Adjacent to this mass there is a well-circumscribed mass measuring 10 x 10 x 9 millimeters which has and adjacent focus of signal loss likely biopsy clip with minimal enhancement. The spiculated mass corresponds with the new mass seen on mammogram. No other masses are identified. Recommend biopsy of the new spiculated mass. There is no extension of enhancement to the skin or chest wall. There is a left axillary tail lymph node which is within normal size limits measuring 5 millimeters. No axillary or internal mammary chain adenopathy. IMPRESSION: HIGHLY SUGGESTIVE OF MALIGNANCY New enhancing spiculated mass adjacent to a previously biopsied benign mass. Recommend ultrasound-guided biopsy of the new mass. BIRADS 5. Highly suspicious of malignancy. COMMENT: The imaging literature indicates that a negative contrast breast MRI examination has a high sensitivity and a moderate specificity for detecting and excluding invasive carcinomas to a detection threshold of 3-5 mm; nonetheless, appropriate clinical and mammographic follow-up are recommended. MRI is not sensitive for detecting DCIS (ductal carcinoma in situ) and may not detect large invasive neoplasms that show only minimal enhancement such as mucinous carcinoma. If there are suspicious calcifications or clinically worrisome palpable masses, then biopsy should still be considered. Invasive neoplasms can be hidden by co-existent and benign enhancement caused by mastitis, hormone therapy effects, radiation therapy, , and recent biopsy or surgery. False positive examinations can occur in a number of circumstances, including breasts that have recently been subject to invasive procedures and those that contain atypical ductal hyperplasia, hormonally stimulated glandular tissue, fat necrosis, or radial scars. This exam was interpreted at Station ID: [id number]. Electronically Signed By: Gerry Carr acr/:05/12/2020 12:40:41 copy to: IGNACIA VALENZUELA letter sent: Biopsy Required ACR BI-RADS Category 5: Highly suggestive of malignancy 3345F
== END ==
PROVIDERS: PCP Nurse Practitioner Family; Referring Provider Internal Medicine Hematology & Oncology; Visit Provider Internal Medicine Hematology & Oncology
DX: C50.911 Malignant neoplasm of unspecified site of right female breast (principal)
CPT/HCPCS: 77049; A9579

== ENCOUNTER → 2020-05-19 11:07 | Outpatient (CLI) | payer MEDICARE, OTHER, SELFPAY ==
[2020-05-20 06:18] LABS: HBsAg Screen Negative (Negative); Hepatitis A Antibody IgM Negative (Negative); Hepatitis B Core Antibody IgM Negative (Negative); Hepatitis C Antibody <0.1 s/co ratio (0.0-0.9)
[2020-05-21 18:10] LABS: ANA Screen, IFA Positive (.)
[2020-05-22 15:38] LABS: Smooth Muscle Antibody 6 Units (0-19)
== END ==
PROVIDERS: PCP Nurse Practitioner Family; Referring Provider Nurse Practitioner Family; Visit Provider Nurse Practitioner Family
DX: R74.8 Abnormal levels of other serum enzymes (principal)
CPT/HCPCS: 36415; 80074; 83516; 86038

== ENCOUNTER → 2020-05-27 13:06 | Outpatient (CLI) | payer MEDICARE, OTHER, SELFPAY ==
--- NOTE | 2020-05-27 | DI.US.S_ITS ---
ULTRASOUND OF LEFT BREAST: 05/27/2020 CLINICAL: Scheduled as lt brst biopsy. AOC not visible by ultrasound today. Will be re-scheduled as aviva bx. Comparison is made to exams dated: 05/12/2020 breast MRI, 05/03/2020 ultrasound, 05/03/2020 mammogram, 11/13/2017 mammogram, 11/13/2017 ultrasound biopsy, and 11/06/2017 ultrasound [facility]. Color flow, real-time, and Doppler ultrasound of the left breast were performed on the areas of interest. Whitmore scale images of the real-time examination were reviewed. Previously, a mass with a spiculated margin in the left breast at 10 o'clock was described. This abnormality is less prominent and not seen well by ultrasound. This finding appears localizable on mammogram IMPRESSION: SUSPICIOUS OF MALIGNANCY The spiculated mass in the left breast is not seen by ultrasound. A stereotactic biopsy is recommended. Findings and recommendations were discussed in detail with the patient at the time of the examination and all questions were answered. This was also discussed by telephone with Dr. Yates on 05/27/20 This exam was interpreted at Station ID: [id number]. Electronically Signed By: Koffi reyes/:05/27/2020 16:48:42 copy to: IGNACIA VALENZUELA letter sent: Biopsy Required Ultrasound BI-RADS: 4b Moderate suspicion of malignancy
== END ==
PROVIDERS: PCP Nurse Practitioner Family; Referring Provider Internal Medicine Hematology & Oncology; Visit Provider Internal Medicine Hematology & Oncology
DX: R92.8 Other abnormal and inconclusive findings on diagnostic imaging of breast (principal); N63.22 Unspecified lump in the left breast, upper inner quadrant
CPT/HCPCS: 76642

== ENCOUNTER → 2020-06-01 11:32 | Outpatient (CLI) | payer MEDICARE, OTHER, SELFPAY ==
[2020-06-01 15:05] LABS: Alanine Aminotransferase 45 IU/L (<35); Albumin 4.5 g/dL (3.5-5.0); Albumin Globulin Ratio 1.6 (1.0-2.8); Alkaline Phosphatase 96 U/L (38-126); Aspartate Aminotransferase 51 IU/L (14-36); Bilirubin Total 0.3 mg/dL (0.2-1.3); Bilirubin Unconjugated 0.3 mg/dL (0.0-1.1); Globulin 2.9 g/dL (1.7-4.1); HEMOLYSIS < 15 (0-50); Total Protein 7.4 g/dL (6.3-8.2)
== END ==
PROVIDERS: PCP Nurse Practitioner Family; Referring Provider Nurse Practitioner Family; Visit Provider Nurse Practitioner Family
DX: R74.8 Abnormal levels of other serum enzymes (principal)
CPT/HCPCS: 36415; 80076

== ENCOUNTER → 2020-09-12 07:10 | Outpatient (CLI) | payer MEDICARE, OTHER, SELFPAY ==
[2020-09-12 09:44] LABS: Add Manual Diff / Slide Review NO; Basophils Absolute Auto 0 /uL (0-100); Basophils Percent Auto 0.9 % (0-2); Eosinophils Absolute Auto 100 /uL (0-450); Eosinophils Percent Auto 2.3 % (2-4); Lymphocytes Absolute Auto 1200 /uL (1100-4500); Mean Corpuscular HGB Conc 33.3 % (30-36); Mean Corpuscular Hemoglobin 31.5 PG (26-34); Mean Corpuscular Volume 94.5 fL (80-100); Monocytes Absolute Auto 500 /uL (0-900); Monocytes Percent Auto 10.1 % (3-14); Neutrophils Absolute Auto 3300 /uL (1500-7000); Neutrophils Percent Auto 63.7 % (50-75); Platelet Count 193 X10^3/uL (150-400); Red Blood Cell Count 4.13 X10^6/uL (4.0-5.2); Red Cell Distribution Width 13.7 % (11.6-14.8); White Blood Cell Count 5.2 X10^3/uL (4.5-11.0)
[2020-09-12 10:25] LABS: Alanine Aminotransferase 27 IU/L (<35); Albumin 4.4 g/dL (3.5-5.0); Albumin Globulin Ratio 1.6 (1.0-2.8); Alkaline Phosphatase 65 U/L (38-126); Aspartate Aminotransferase 40 IU/L (14-36); BUN Creatinine Ratio 23.6 (6-22); Bilirubin Direct 0.1 mg/dL (0.0-0.4); Bilirubin Total 0.5 mg/dL (0.2-1.3); Blood Urea Nitrogen 13 mg/dL (7-17); Calcium 9.8 mg/dL (8.4-10.2); Carbon Dioxide 25 mmol/L (22-32); Chloride 104 mmol/L (98-107); Estimated Glomerular Filt Rate > 60.0 mL/min (>60); Gamma Glutamyl Transpeptidase 54 U/L (12-43); Globulin 2.8 g/dL (1.7-4.1); Glucose 90 mg/dL (80-110); HEMOLYSIS < 15 (0-50); Phosphorous 3.7 mg/dL (2.8-4.1); Potassium 4.2 mmol/L (3.4-5.1); Sodium 137 mmol/L (137-145); Total Protein 7.2 g/dL (6.3-8.2)
== END ==
PROVIDERS: PCP Nurse Practitioner Family; Referring Provider Internal Medicine Medical Oncology; Visit Provider Internal Medicine Medical Oncology
DX: C50.919 Malignant neoplasm of unspecified site of unspecified female breast (principal)
CPT/HCPCS: 36415; 80053; 82248; 82977; 83735; 84100; 85025

== ENCOUNTER → 2020-12-16 11:56 | Outpatient (CLI) | payer MEDICARE, OTHER, SELFPAY ==
[2020-12-16 16:30] LABS: Vitamin D 25 Hydroxy (D3) 77.3 ng/mL (30.0-100.0)
== END ==
PROVIDERS: PCP Family Medicine; Referring Provider Family Medicine; Visit Provider Family Medicine
DX: C50.911 Malignant neoplasm of unspecified site of right female breast (principal); E55.9 Vitamin D deficiency, unspecified; I10 Essential (primary) hypertension; L71.9 Rosacea, unspecified
CPT/HCPCS: 36415; 82306

== ENCOUNTER → 2021-02-20 14:33 | Outpatient (CLI) | payer MEDICARE, OTHER, SELFPAY ==
[2021-02-20 16:03] LABS: Add Manual Diff / Slide Review NO; Basophils Absolute Auto 0 /uL (0-100); Basophils Percent Auto 0.7 % (0-2); Eosinophils Absolute Auto 100 /uL (0-450); Eosinophils Percent Auto 1.3 % (2-4); Hematocrit 36.1 % (36-46); Hemoglobin 12.2 g/dL (12.0-16.0); Lymphocytes Absolute Auto 1200 /uL (1100-4500); Lymphocytes Percent Auto 17.2 % (25-40); Mean Corpuscular HGB Conc 33.8 % (30-36); Mean Corpuscular Hemoglobin 31.4 PG (26-34); Mean Corpuscular Volume 92.8 fL (80-100); Monocytes Absolute Auto 600 /uL (0-900); Monocytes Percent Auto 9.3 % (3-14); Neutrophils Absolute Auto 4800 /uL (1500-7000); Neutrophils Percent Auto 71.5 % (50-75); Platelet Count 225 X10^3/uL (150-400); Red Blood Cell Count 3.89 X10^6/uL (4.0-5.2); Red Cell Distribution Width 12.8 % (11.6-14.8); White Blood Cell Count 6.7 X10^3/uL (4.5-11.0)
[2021-02-20 16:29] LABS: Alanine Aminotransferase 20 IU/L (<35); Albumin 4.5 g/dL (3.5-5.0); Albumin Globulin Ratio 1.7 (1.0-2.8); Alkaline Phosphatase 58 U/L (38-126); Aspartate Aminotransferase 30 IU/L (14-36); Bilirubin Direct 0.1 mg/dL (0.0-0.4); Bilirubin Total 0.2 mg/dL (0.2-1.3); Bilirubin Unconjugated 0.2 mg/dL (0.0-1.1); Blood Urea Nitrogen 13 mg/dL (7-17); Calcium 9.3 mg/dL (8.4-10.2); Carbon Dioxide 24 mmol/L (22-32); Chloride 103 mmol/L (98-107); Estimated Glomerular Filt Rate > 60.0 mL/min (>60); Gamma Glutamyl Transpeptidase 49 U/L (12-43); Globulin 2.6 g/dL (1.7-4.1); Glucose 98 mg/dL (80-110); HEMOLYSIS < 15 (0-50); Magnesium 2.2 mg/dL (1.6-2.3); Phosphorous 3.7 mg/dL (2.8-4.1); Potassium 4.5 mmol/L (3.4-5.1); Sodium 135 mmol/L (137-145); Total Protein 7.1 g/dL (6.3-8.2)
== END ==
PROVIDERS: Nurse Practitioner Family; PCP Family Medicine; Referring Provider Physician Assistant; Visit Provider Physician Assistant
DX: C50.919 Malignant neoplasm of unspecified site of unspecified female breast (principal); R74.8 Abnormal levels of other serum enzymes
CPT/HCPCS: 80053; 80076; 82248; 82977; 83735; 84100; 85025

== ENCOUNTER → 2021-02-27 08:18 | Outpatient (CLI) | payer MEDICARE, OTHER, SELFPAY ==
[2021-02-27 12:32] LABS: COVID19 -Nasal RAPID Negative (Negative)
== END ==
PROVIDERS: PCP Family Medicine; Referring Provider Nurse Practitioner Family; Visit Provider Nurse Practitioner Family
DX: Z20.822 Contact with and (suspected) exposure to COVID-19 (principal)
CPT/HCPCS: 87635; C9803

== ENCOUNTER 2021-02-28 10:25 | Day surgery (SDC) | payer MEDICARE, OTHER, SELFPAY ==
[2021-02-28] MEDS: PROPARACAINE 0.5% OPHTH SOL 2 DROPS EYE-OP (10:50)
[2021-02-28 11:00] VITALS: BP 140/90; PULSE 83; RESP 18; TEMP 36.6; O2SAT 98; BMI 23.8
[2021-02-28] MEDS: CATARACT EYE COMPOUND (10 DROPS/SYRINGE) 3 DROPS EYE-OP (11:14)
--- NOTE | 2021-02-28 11:55 | PM.PREOP ---
Pre-operative Note Interval Note History & Physical reviewed/Exam performed by Physician: Yes Changes to H&P: No
--- NOTE | 2021-02-28 11:56 | PM.OP.1 ---
Operative Date/Time/Diagnoses Pre-op diagnosis: Nuclear cataract right eye Procedure & Clinicians Procedure: Cataract Surgery Same procedure as scheduled: Yes Surgeon: Lino Lemus Anesthesia Type: MAC +/- and Sedation Operative Notes Procedure in detail: Patient brought to the operating suite. Tetracaine drops placed in the right eye. Patient was prepped and draped in sterile manner. Wire lid speculum was placed in the eye. Betadine drops were placed on the eye. This was irrigated. Lidocaine jelly was placed on the eye. A paracentesis port was created with a side-port blade. 0.1 mL 1% preservative free lidocaine was injected into the anterior chamber. The anterior chamber was deepened with viscoelastic. 2.6 mm keratome was used to create a temporal clear corneal incision. Cystotome and Utrata forceps were used to create continuous tear capsulorrhexis. Balanced salt solution was used to hydro dissect the nucleus. The phacoemulsification handpiece was inserted and the nucleus was removed using the stop and chop technique. The irrigation aspiration handpiece was inserted and the remaining cortex was removed. Anterior chamber was deepened with viscoelastic. An Dutton DIB00 intraocular lens with a power of 20.5 was injected into the capsular bag. Irrigation aspiration handpiece was inserted and the remaining viscoelastic was removed. Incision was hydrated with balanced salt solution and found to be leak free with pressure with Weck-Giuliana sponges. 0.1 mL Vigamox injected anterior chamber. 0.3 mL Kenalog 10 mg was injected subconjunctivally. Lid speculum was removed. The patient left the operating room in excellent condition. Complications: none Post-operative Condition: stable Disposition: same day surgery
[2021-02-28] MEDS: HYALURONATE SODIUM 30 MG-10 MG/ML SYRINGES 1 BOX INTRAOCULA (12:17)
[2021-02-28] MEDS: TRIAMCINOLONE 50 MG/5 ML VIAL INJ (12:18)
[2021-02-28] MEDS: BALANCED SALT IRRIG SOLN NO.2 500 ML, EPINEPHrine 1 MG IRR (12:18)
[2021-02-28] MEDS: TETRACAINE 0.5% OPHTH DROPS 4 ML 2 DROPS EYE-OP (12:18)
[2021-02-28] MEDS: PHENYLEPHRINE/LIDOCAINE VIAL (OR) 0.2 ML EYE-OP (12:18)
[2021-02-28] MEDS: MOXIFLOXACIN INJ 4 MG/0.8 ML VIAL 0.5 MG EYE-OP (12:18)
[2021-02-28] MEDS: LIDOCAINE 2% (GLYDO) 6 ML GEL TOP (12:19)
[2021-02-28 12:41] VITALS: BP 142/83; PULSE 76; RESP 18; TEMP 36.4; O2SAT 98
== END 2021-02-28 12:30 | disposition home or self-care (01) ==
PROVIDERS: PCP Family Medicine; Referring Provider Ophthalmology; Visit Provider Ophthalmology
PROC: (CPT 66984; principal; 2021-02-28 12:15)
DX: H25.11 Age-related nuclear cataract, right eye (principal); I10 Essential (primary) hypertension; E78.00 Pure hypercholesterolemia, unspecified
CPT/HCPCS: 66984; J0171; J2250; J3301

== ENCOUNTER → 2021-03-21 14:05 | Outpatient (CLI) | payer OTHER, MEDICARE, SELFPAY ==
[2021-03-21 14:38] LABS: Add Manual Diff / Slide Review NO; Basophils Absolute Auto 100 /uL (0-100); Eosinophils Absolute Auto 100 /uL (0-450); Eosinophils Percent Auto 1.1 % (2-4); Hematocrit 37.2 % (36-46); Hemoglobin 12.7 g/dL (12.0-16.0); Lymphocytes Absolute Auto 1100 /uL (1100-4500); Lymphocytes Percent Auto 19.8 % (25-40); Mean Corpuscular HGB Conc 34.1 % (30-36); Mean Corpuscular Hemoglobin 31.3 PG (26-34); Mean Corpuscular Volume 91.6 fL (80-100); Monocytes Absolute Auto 500 /uL (0-900); Monocytes Percent Auto 8.9 % (3-14); Neutrophils Absolute Auto 4000 /uL (1500-7000); Neutrophils Percent Auto 69.2 % (50-75); Platelet Count 213 X10^3/uL (150-400); Red Blood Cell Count 4.06 X10^6/uL (4.0-5.2); Red Cell Distribution Width 13.1 % (11.6-14.8); White Blood Cell Count 5.8 X10^3/uL (4.5-11.0)
[2021-03-21 15:23] LABS: Alanine Aminotransferase 20 IU/L (<35); Albumin 4.3 g/dL (3.5-5.0); Albumin Globulin Ratio 1.7 (1.0-2.8); Alkaline Phosphatase 57 U/L (38-126); Aspartate Aminotransferase 29 IU/L (14-36); BUN Creatinine Ratio 19.1 (6-22); Bilirubin Total 0.3 mg/dL (0.2-1.3); Blood Urea Nitrogen 13 mg/dL (7-17); Calcium 9.5 mg/dL (8.4-10.2); Carbon Dioxide 25 mmol/L (22-32); Chloride 105 mmol/L (98-107); Estimated Glomerular Filt Rate > 60.0 mL/min (>60); Gamma Glutamyl Transpeptidase 54 U/L (12-43); Globulin 2.6 g/dL (1.7-4.1); Glucose 107 mg/dL (80-110); HEMOLYSIS < 15 (0-50); Magnesium 1.9 mg/dL (1.6-2.3); Phosphorous 3.3 mg/dL (2.8-4.1); Potassium 4.2 mmol/L (3.4-5.1); Sodium 136 mmol/L (137-145); Total Protein 6.9 g/dL (6.3-8.2)
== END ==
PROVIDERS: PCP Family Medicine; Referring Provider Physician Assistant; Visit Provider Physician Assistant
DX: C50.919 Malignant neoplasm of unspecified site of unspecified female breast (principal); Z01.810 Encounter for preprocedural cardiovascular examination; I10 Essential (primary) hypertension
CPT/HCPCS: 36415; 80053; 82248; 82977; 83735; 84100; 85025; 93005

== ENCOUNTER → 2021-04-03 10:48 | Outpatient (CLI) | payer MEDICARE, OTHER, SELFPAY ==
[2021-04-03 16:18] LABS: COVID19 -Nasal RAPID Negative (Negative)
== END ==
PROVIDERS: PCP Family Medicine; Referring Provider Internal Medicine Gastroenterology; Visit Provider Internal Medicine Gastroenterology
DX: Z20.822 Contact with and (suspected) exposure to COVID-19 (principal)
CPT/HCPCS: 87635; C9803

== ENCOUNTER 2021-04-04 07:28 | Day surgery (SDC) | payer MEDICARE, OTHER, SELFPAY ==
--- NOTE | 2021-04-04 07:24 | SUR.OPER ---
Supine on eye stretcher, head on extension cradle secured with tape. Arms tucked at sides with blanket. Pillow under knees.
[2021-04-04 07:45] VITALS: BP 182/92; PULSE 81; RESP 18; TEMP 36.6; O2SAT 100; BMI 23.5
[2021-04-04] MEDS: PROPARACAINE 0.5% OPHTH SOL 2 DROPS EYE-OP (07:54)
[2021-04-04] MEDS: CATARACT EYE COMPOUND (10 DROPS/SYRINGE) 3 DROPS EYE-OP ×2 (08:04→08:06)
--- NOTE | 2021-04-04 08:59 | PM.PREOP ---
Pre-operative Note Interval Note History & Physical reviewed/Exam performed by Physician: Yes Changes to H&P: Yes Assessment & Plan Add'l Plan Details Add'l Plan*: The patient requires surgery because there are no non surgical alternatives. Delay will result in continuing worsening and patient is unable to perform necessary her necessary functions. Delay results in more complex future surgery.
--- NOTE | 2021-04-04 09:03 | PM.OP.1 ---
Operative Date/Time/Diagnoses Pre-op diagnosis: Nuclear Cataract Left eye Post-op diagnosis: same Procedure & Clinicians Same procedure as scheduled: Yes Surgeon: Lino Lemus Anesthesia Type: MAC +/- and Sedation Operative Notes Procedure in detail: Patient brought to the operating suite. Tetracaine drops placed in the left eye. Patient was prepped and draped in sterile manner. Wire lid speculum was placed in the eye. Betadine drops were placed on the eye. This was irrigated. Lidocaine jelly was placed on the eye. A paracentesis port was created with a side-port blade. 0.1 mL 1% preservative free lidocaine was injected into the anterior chamber. The anterior chamber was deepened with viscoelastic. 2.6 mm keratome was used to create a temporal clear corneal incision. Cystotome and Utrata forceps were used to create continuous tear capsulorrhexis. Balanced salt solution was used to hydro dissect the nucleus. The phacoemulsification handpiece was inserted and the nucleus was removed using the stop and chop technique. The irrigation aspiration handpiece was inserted and the remaining cortex was removed. Anterior chamber was deepened with viscoelastic. An Dutton DIB00 intraocular lens with a power of 22.0 was injected into the capsular bag. Irrigation aspiration handpiece was inserted and the remaining viscoelastic was removed. Incision was hydrated with balanced salt solution and found to be leak free with pressure with Weck-Giuliana sponges. 0.1 mL Vigamox injected anterior chamber. 0.3 mL Kenalog 10 mg was injected subconjunctivally. Lid speculum was removed. The patient left the operating room in excellent condition. Complications: none Post-operative Condition: stable Disposition: same day surgery
[2021-04-04] MEDS: LIDOCAINE 2% (GLYDO) 6 ML GEL TOP (09:11)
[2021-04-04] MEDS: TETRACAINE 0.5% OPHTH DROPS 4 ML 2 DROPS EYE-OP (09:12)
[2021-04-04] MEDS: BALANCED SALT IRRIG SOLN NO.2 500 ML, EPINEPHrine 1 MG IRR (09:12)
[2021-04-04] MEDS: PHENYLEPHRINE/LIDOCAINE VIAL (OR) 0.2 ML EYE-OP (09:13)
[2021-04-04] MEDS: TRIAMCINOLONE 50 MG/5 ML VIAL INJ (09:13)
[2021-04-04] MEDS: MOXIFLOXACIN INJ 4 MG/0.8 ML VIAL 0.5 MG EYE-OP (09:14)
[2021-04-04] MEDS: HYALURONATE SODIUM 30 MG-10 MG/ML SYRINGES 1 BOX INTRAOCULA (09:14)
[2021-04-04 09:28] VITALS: BP 121/82; PULSE 70; RESP 14; TEMP 36.6; O2SAT 99
== END 2021-04-04 09:43 | disposition home or self-care (01) ==
PROVIDERS: PCP Family Medicine; Referring Provider Ophthalmology; Visit Provider Ophthalmology
PROC: (CPT 66984; principal; 2021-04-04 09:15)
DX: H25.12 Age-related nuclear cataract, left eye (principal); I10 Essential (primary) hypertension; C50.919 Malignant neoplasm of unspecified site of unspecified female breast
CPT/HCPCS: 66984; J0171; J2250; J3301

== ENCOUNTER → 2021-06-19 11:23 | Outpatient (CLI) | payer MEDICARE, OTHER, SELFPAY ==
--- NOTE | 2021-06-19 11:26 | DI.RAD.S_ITS ---
PROCEDURE: XR SHOULDER LT MIN 2V INDICATIONS: left shoulder/humerus pain. TECHNIQUE: 3 views of the shoulder were acquired. COMPARISON: None. FINDINGS: Bones: No fractures or dislocations. Moderate acromioclavicular joint and glenohumeral joint osteoarthritic changes are seen. No suspicious bony lesions. Visualized ribs appear intact. Soft tissues: No suspicious soft tissue calcifications. IMPRESSION: Moderate left shoulder joint osteoarthritis. No fracture or dislocation. No gross soft tissue abnormality. Dictated by: Paddy Jett M.D. on 06/19/2021 at 12:15 Approved by: Paddy Jett M.D. on 06/19/2021 at 12:20
== END ==
PROVIDERS: PCP Family Medicine; Referring Provider Family Medicine; Visit Provider Family Medicine
DX: C50.911 Malignant neoplasm of unspecified site of right female breast (principal); M89.8X2 Other specified disorders of bone, upper arm; M19.012 Primary osteoarthritis, left shoulder
CPT/HCPCS: 73030

== ENCOUNTER → 2021-10-09 07:59 | Outpatient (CLI) | payer MEDICARE, OTHER, SELFPAY ==
[2021-10-09 09:08] LABS: Creatinine Urine Random 47.3 mg/dL
[2021-10-09 09:14] LABS: Microalbumi Creatinin Ratio Ur 42.2 ug/mg CR (<30)
[2021-10-09 09:33] LABS: Cholesterol 258 mg/dL (140-199); HDL Cholesterol 102 mg/dL (40-60); LDL Cholesterol Calculated 135 mg/dL (<100); Triglycerides 103 mg/dL (35-150)
[2021-10-09 09:53] LABS: Vitamin D 25 Hydroxy (D3) 73.8 ng/mL (30.0-100.0)
== END ==
PROVIDERS: PCP Family Medicine; Referring Provider Family Medicine; Visit Provider Family Medicine
DX: E78.5 Hyperlipidemia, unspecified (principal); E55.9 Vitamin D deficiency, unspecified; I10 Essential (primary) hypertension; R74.8 Abnormal levels of other serum enzymes
CPT/HCPCS: 36415; 80061; 82043; 82306; 82570

== ENCOUNTER → 2021-10-19 13:33 | Outpatient (CLI) | payer MEDICARE, OTHER, SELFPAY ==
[2021-10-19 18:09] LABS: TSH w/ Reflex to FT4 1.77 uIU/mL (0.47-4.68)
== END ==
PROVIDERS: PCP Family Medicine; Referring Provider Family Medicine; Visit Provider Family Medicine
DX: R76.8 Other specified abnormal immunological findings in serum (principal); E78.5 Hyperlipidemia, unspecified
CPT/HCPCS: 36415; 84443

== ENCOUNTER → 2021-11-16 10:52 | Outpatient (CLI) | payer MEDICARE, OTHER, SELFPAY | PROVIDERS: PCP Family Medicine; Referring Provider Family Medicine; Visit Provider Family Medicine | DX: M85.89 Other specified disorders of bone density and structure, multiple sites (principal); C50.911 Malignant neoplasm of unspecified site of right female breast | CPT/HCPCS: 77080 ==

== ENCOUNTER → 2022-02-23 14:06 | Outpatient (CLI) | payer MEDICARE, OTHER, SELFPAY ==
[2022-02-23 16:30] LABS: Creatinine Urine Random 122.4 mg/dL; Microalbumi Creatinin Ratio Ur 130.7 ug/mg CR (<30)
== END ==
PROVIDERS: PCP Family Medicine; Referring Provider Family Medicine; Visit Provider Family Medicine
DX: I10 Essential (primary) hypertension (principal); R80.9 Proteinuria, unspecified
CPT/HCPCS: 82043; 82570

== ENCOUNTER → 2022-04-09 15:37 | Outpatient (CLI) | payer MEDICARE, OTHER, SELFPAY ==
[2022-04-09 16:00] LABS: Add Manual Diff / Slide Review NO; Basophils Absolute Auto 100 /uL (0-100); Basophils Percent Auto 1.1 % (0-2); Eosinophils Absolute Auto 100 /uL (0-450); Eosinophils Percent Auto 1.5 % (2-4); Hematocrit 43.6 % (36-46); Hemoglobin 14.8 g/dL (12.0-16.0); Lymphocytes Absolute Auto 1100 /uL (1100-4500); Lymphocytes Percent Auto 19.7 % (25-40); Mean Corpuscular HGB Conc 33.9 % (30-36); Mean Corpuscular Volume 94.3 fL (80-100); Monocytes Absolute Auto 500 /uL (0-900); Monocytes Percent Auto 9.8 % (3-14); Neutrophils Absolute Auto 3800 /uL (1500-7000); Neutrophils Percent Auto 67.9 % (50-75); Platelet Count 225 X10^3/uL (150-400); Red Blood Cell Count 4.62 X10^6/uL (4.0-5.2); Red Cell Distribution Width 13.4 % (11.6-14.8); White Blood Cell Count 5.6 X10^3/uL (4.5-11.0)
[2022-04-09 16:38] LABS: Alanine Aminotransferase 36 IU/L (<35); Albumin 4.5 g/dL (3.5-5.0); Albumin Globulin Ratio 1.6 (1.0-2.8); Alkaline Phosphatase 89 U/L (38-126); Aspartate Aminotransferase 46 IU/L (14-36); BUN Creatinine Ratio 21.1 (6-22); Bilirubin Total 0.6 mg/dL (0.2-1.3); Blood Urea Nitrogen 12 mg/dL (7-17); Calcium 9.8 mg/dL (8.4-10.2); Carbon Dioxide 24 mmol/L (22-32); Chloride 99 mmol/L (98-107); Estimated Glomerular Filt Rate > 60 mL/min (>60); Globulin 2.9 g/dL (1.7-4.1); Glucose 95 mg/dL (80-110); HEMOLYSIS < 15 (0-50); Potassium 4.2 mmol/L (3.4-5.1); Sodium 135 mmol/L (137-145); Total Protein 7.4 g/dL (6.3-8.2)
[2022-04-09 17:10] LABS: TSH w/ Reflex to FT4 2.33 uIU/mL (0.47-4.68)
[2022-04-09 17:22] LABS: Creatinine Urine Random 38.2 mg/dL
[2022-04-09 17:26] LABS: Microalbumi Creatinin Ratio Ur 159.6 ug/mg CR (<30); Microalbumin Urine Random 6.1 mg/dL (0-1.6)
== END ==
PROVIDERS: PCP Family Medicine; Referring Provider Student in an Organized Health Care Education/Training Program; Visit Provider Student in an Organized Health Care Education/Training Program
DX: N05.9 Unspecified nephritic syndrome with unspecified morphologic changes (principal); D64.9 Anemia, unspecified; R80.9 Proteinuria, unspecified; C50.911 Malignant neoplasm of unspecified site of right female breast; I10 Essential (primary) hypertension
CPT/HCPCS: 36415; 80053; 82043; 82570; 84443; 85025

== ENCOUNTER → 2022-05-14 13:11 | Outpatient (CLI) | payer MEDICARE, OTHER, SELFPAY ==
--- NOTE | 2022-05-14 | DI.US.S_ITS ---
PROCEDURE: US RENAL COMPLETE INDICATIONS: PROTEINURIA TECHNIQUE: Real-time scanning was performed of the kidneys and bladder, with image documentation. COMPARISON: None. FINDINGS: Kidneys: Kidneys are normal in size. Right kidney measures 11.2 cm long; left kidney measures 11.4 cm long. Right renal cortical thickness is 1.3 cm; left renal cortical thickness is 1.2 cm. Renal cortical echotexture is normal. No hydronephrosis or nephrolithiasis. No suspicious solid mass lesions. Bladder: Pre-void bladder volume is 248 mL. Post-void residual is 0 mL. Pre-void images demonstrate no intraluminal masses or stones. On pre-void images, both ureteral jets are noted with color Doppler interrogation. (Of note, ureteral jets may not be detectable in up to 25% of cases due to insufficient differences in specific gravity between ureteral and bladder urine). Miscellaneous: No free pelvic fluid. IMPRESSION: Normal renal ultrasound. Dictated by: Eric Coleman M.D. on 05/14/2022 at 14:26 Approved by: Eric Coleman M.D. on 05/14/2022 at 14:27
== END ==
PROVIDERS: PCP Family Medicine; Referring Provider Student in an Organized Health Care Education/Training Program; Visit Provider Student in an Organized Health Care Education/Training Program
DX: R80.9 Proteinuria, unspecified (principal)
CPT/HCPCS: 76770

== ENCOUNTER → 2022-05-16 13:40 | Outpatient (CLI) | payer MEDICARE, OTHER, SELFPAY ==
[2022-05-16 14:58] LABS: Blood Urea Nitrogen 11 mg/dL (7-17); Calcium 9.5 mg/dL (8.4-10.2); Carbon Dioxide 26 mmol/L (22-32); Chloride 98 mmol/L (98-107); Estimated Glomerular Filt Rate > 60 mL/min (>60); Glucose 94 mg/dL (80-110); HEMOLYSIS < 15 (0-50); Potassium 4.2 mmol/L (3.4-5.1); Sodium 135 mmol/L (137-145)
[2022-05-16 16:40] LABS: Appearance Urine UA CLEAR; Bilirubin Urine UA NEGATIVE (NEGATIVE); Color Urine UA YELLOW; Glucose Urine UA NEGATIVE (Negative); Ketones Urine UA NEGATIVE (NEGATIVE); Leukocyte Esterase Urine UA NEGATIVE (NEGATIVE); Nitrite Urine UA NEGATIVE (Negative); Occult Blood Urine UA NEGATIVE (Negative); Protein Urine UA NEGATIVE (Negative); Urobilinogen Urine UA 0.2 E.U./dL (0.2)
[2022-05-16 16:58] LABS: Bacteria Urine None Seen; Culture Indicated Urine Cult Not Indicated; RBC Urine None Seen (0-5/HPF); Squamous Epithelial Cell Urine None Seen (0-5/HPF); WBC Urine None Seen (0-5/HPF)
[2022-05-18 15:58] LABS: Creatinine Urine Random 30.7 mg/dL; Protein (Total) Urine Random 11 mg/dL (0-12); Protein Creatinine Ratio Urine 0.35 GRAM/24H
== END ==
PROVIDERS: PCP Family Medicine; Referring Provider Student in an Organized Health Care Education/Training Program; Visit Provider Student in an Organized Health Care Education/Training Program
DX: N05.9 Unspecified nephritic syndrome with unspecified morphologic changes (principal); N30.00 Acute cystitis without hematuria; R80.9 Proteinuria, unspecified
CPT/HCPCS: 36415; 80048; 81001; 82570; 84156; 87086

== ENCOUNTER → 2022-05-28 12:06 | Outpatient (CLI) | payer MEDICARE, OTHER, SELFPAY ==
[2022-05-30 12:47] LABS: Free Kappa Lt Chains, Serum 14.1 mg/L (3.3-19.4); Free Lambda Lt Chains,Serum 11.6 mg/L (5.7-26.3)
[2022-05-30 13:27] LABS: Albumin 3.7 g/dL (2.9-4.4); Alpha-1-Globulin 0.3 g/dL (0.0-0.4); Alpha-2-Globulin 0.8 g/dL (0.4-1.0); Gamma Globulin 0.9 g/dL (0.4-1.8); Globulin Total 2.9 g/dL (2.2-3.9); Protein, Total 6.6 g/dL (6.0-8.5)
[2022-05-31 11:40] LABS: Alpha-1 Globulin, Ur 3.5 % (.); Beta Globulin, Ur 21.7 % (.); Gamma Globulin, Ur 7.9 % (.); M-Spike % Not Observed % (Not Observed); Urine Total Protein 39.4 mg/dL (Not Estab.)
== END ==
PROVIDERS: PCP Family Medicine; Referring Provider Student in an Organized Health Care Education/Training Program; Visit Provider Student in an Organized Health Care Education/Training Program
DX: R80.9 Proteinuria, unspecified (principal); D47.2 Monoclonal gammopathy
CPT/HCPCS: 36415; 83883; 84155; 84156; 84165; 84166

== ENCOUNTER → 2022-07-07 10:27 | Outpatient (CLI) | payer MEDICARE, OTHER, SELFPAY ==
[2022-07-07 13:43] LABS: Cholesterol 299 mg/dL (140-199); Triglycerides 89 mg/dL (35-150)
[2022-07-07 13:58] LABS: HDL Cholesterol 137 mg/dL (40-60); LDL Cholesterol Calculated 144 mg/dL (<100)
== END ==
PROVIDERS: PCP Family Medicine; Referring Provider Family Medicine; Visit Provider Family Medicine
DX: E78.5 Hyperlipidemia, unspecified (principal); C50.911 Malignant neoplasm of unspecified site of right female breast
CPT/HCPCS: 36415; 80061

== ENCOUNTER → 2022-07-19 13:53 | Outpatient (CLI) | payer MEDICARE, OTHER, SELFPAY ==
[2022-07-19 14:10] LABS: Add Manual Diff / Slide Review NO; Basophils Absolute Auto 100 /uL (0-100); Basophils Percent Auto 0.9 % (0-2); Eosinophils Absolute Auto 100 /uL (0-450); Eosinophils Percent Auto 1.4 % (2-4); Hematocrit 40.8 % (36-46); Lymphocytes Absolute Auto 1000 /uL (1100-4500); Lymphocytes Percent Auto 16.7 % (25-40); Mean Corpuscular HGB Conc 34.4 % (30-36); Mean Corpuscular Hemoglobin 32.5 PG (26-34); Mean Corpuscular Volume 94.6 fL (80-100); Monocytes Absolute Auto 600 /uL (0-900); Monocytes Percent Auto 9.5 % (3-14); Neutrophils Absolute Auto 4300 /uL (1500-7000); Neutrophils Percent Auto 71.5 % (50-75); Platelet Count 213 X10^3/uL (150-400); Red Blood Cell Count 4.31 X10^6/uL (4.0-5.2); Red Cell Distribution Width 13.2 % (11.6-14.8); White Blood Cell Count 6.1 X10^3/uL (4.5-11.0)
[2022-07-19 14:23] LABS: Alanine Aminotransferase 22 IU/L (<35); Albumin 4.3 g/dL (3.5-5.0); Albumin Globulin Ratio 1.5 (1.0-2.8); Alkaline Phosphatase 67 U/L (38-126); Aspartate Aminotransferase 30 IU/L (14-36); BUN Creatinine Ratio 24.6 (6-22); Bilirubin Total 0.4 mg/dL (0.2-1.3); Blood Urea Nitrogen 14 mg/dL (7-17); Calcium 9.1 mg/dL (8.4-10.2); Carbon Dioxide 26 mmol/L (22-32); Chloride 102 mmol/L (98-107); Estimated Glomerular Filt Rate > 60 mL/min (>60); Globulin 2.9 g/dL (1.7-4.1); Glucose 95 mg/dL (80-110); HEMOLYSIS 16 (0-50); Potassium 4.3 mmol/L (3.4-5.1); Sodium 136 mmol/L (137-145); Total Protein 7.2 g/dL (6.3-8.2)
[2022-07-20 07:25] LABS: CA 15-3 23.8 U/mL (0.0-25.0)
== END ==
PROVIDERS: Internal Medicine Hematology & Oncology; PCP Family Medicine; Referring Provider Internal Medicine Medical Oncology; Visit Provider Internal Medicine Medical Oncology
DX: C50.919 Malignant neoplasm of unspecified site of unspecified female breast (principal); C50.911 Malignant neoplasm of unspecified site of right female breast
CPT/HCPCS: 36415; 80053; 85025; 86300

== ENCOUNTER → 2023-01-21 14:21 | Outpatient (CLI) | payer MEDICARE, OTHER, SELFPAY ==
[2023-01-21 15:33] LABS: BUN Creatinine Ratio 22.7 (6-22); Blood Urea Nitrogen 15 mg/dL (7-17); Calcium 9.8 mg/dL (8.4-10.2); Carbon Dioxide 26 mmol/L (22-32); Chloride 100 mmol/L (98-107); Estimated Glomerular Filt Rate > 60 mL/min (>60); Glucose 100 mg/dL (80-110); HEMOLYSIS < 15 (0-50); Potassium 4.7 mmol/L (3.4-5.1); Sodium 134 mmol/L (137-145)
[2023-01-21 16:13] LABS: Creatinine Urine Random 60.4 mg/dL; Protein (Total) Urine Random 10 mg/dL (0-12); Protein Creatinine Ratio Urine 0.16 GRAM/24H
== END ==
PROVIDERS: PCP Family Medicine; Referring Provider Student in an Organized Health Care Education/Training Program; Visit Provider Student in an Organized Health Care Education/Training Program
DX: N05.9 Unspecified nephritic syndrome with unspecified morphologic changes (principal); R80.9 Proteinuria, unspecified
CPT/HCPCS: 36415; 80048; 82570; 84156

== ENCOUNTER → 2023-02-21 15:43 | Outpatient (CLI) | payer MEDICARE, OTHER, SELFPAY ==
--- NOTE | 2023-02-21 15:46 | DI.MRI.S_ITS ---
PROCEDURE: MR HEAD/BRAIN WO/W CON INDICATIONS: Possible Mets, memory loss TECHNIQUE: Noncontrast axial T1 spin echo, axial T2 fast spin echo, sagittal and axial FLAIR, coronal T2 fast spin echo, axial gradient echo, axial diffusion and ADC through the brain. After the administration of contrast, axial and coronal and sagittal 3D VIBE or T1 spin echo with fat saturation through the brain. COMPARISON: None. FINDINGS: Image quality: Excellent. CSF Spaces: Basal cisterns are patent. No extra-axial fluid collections. Ventricles are normal in size and shape. Brain: No intracranial masses or hemorrhage. Whitmore/white matter interface is normal. Brainstem appears normal. Diffusion-weighted sequence is unremarkable without evidence of acute infarct. Normal intravascular flow voids are present. Mild atrophy and trace white matter chronic ischemic change. No abnormal enhancement or cortical infarct present. Both hippocampal formations show appropriate volume, morphology and signal characteristics. Punctate susceptibility artifact in right occipital cuneus associated with popcorn T2 signal reflects small cavernous hemangioma Skull and face: Calvarial marrow is normal in signal. Orbits appear normal. Bilateral intraocular lens replacements noted. Sinuses: Sinuses and mastoids appear clear. IMPRESSION: Mild atrophy and trace white matter chronic ischemic change without evidence metastatic disease. Incidental right occipital small cavernous hemangioma Approved by: Mike Bazzi M.D. on 02/21/2023 at 17:24
== END ==
PROVIDERS: PCP Family Medicine; Referring Provider Family Medicine; Visit Provider Family Medicine
DX: C50.911 Malignant neoplasm of unspecified site of right female breast (principal); C50.912 Malignant neoplasm of unspecified site of left female breast; D18.02 Hemangioma of intracranial structures; R41.3 Other amnesia
CPT/HCPCS: 70553

== ENCOUNTER → 2023-04-27 15:39 | Outpatient (CLI) | payer MEDICARE, OTHER, SELFPAY ==
--- NOTE | 2023-04-27 15:43 | DI.RAD.S_ITS ---
PROCEDURE: XR CERVICAL SPINE 2V OR 3V INDICATIONS: chronic neck pain TECHNIQUE: 4 view(s) of the cervical spine were acquired. COMPARISON: None. FINDINGS: Bones: Lateral view extends from the skull base to C7. No acute fracture or traumatic subluxation. [id number] multilevel degenerative changes with osteophytosis, disc height loss and facet/uncal hypertrophy. The lateral masses of C1 appear intact on the odontoid view. No suspicious bony lesions. Soft tissues: No prevertebral soft tissue swelling. Visualized lung apices are clear. Calcification of the bilateral carotid bulbs. IMPRESSION: 1. No acute fracture or traumatic subluxation of the cervical spine. 2. Mild to moderate multilevel degenerative changes of the cervical spine. 3. Calcification of the bilateral carotid bulbs. Consider a carotid Doppler ultrasound for further evaluation, at clinical discretion. Dictated by: Damaris Oropeza M.D. on 04/27/2023 at 17:33 Approved by: Damaris Oropeza M.D. on 04/27/2023 at 17:44
== END ==
LOC: RAD 15:42
PROVIDERS: PCP Family Medicine; Referring Provider Family Medicine; Visit Provider Family Medicine
DX: M50.30 Other cervical disc degeneration, unspecified cervical region (principal); M47.812 Spondylosis without myelopathy or radiculopathy, cervical region; M25.78 Osteophyte, vertebrae; I65.23 Occlusion and stenosis of bilateral carotid arteries; R20.0 Anesthesia of skin; G89.29 Other chronic pain
CPT/HCPCS: 72040

== ENCOUNTER → 2023-05-09 09:10 | Outpatient (CLI) | payer MEDICARE, OTHER, SELFPAY ==
--- NOTE | 2023-05-09 09:11 | DI.MRI.S_ITS ---
PROCEDURE: MR CERVICAL SPINE WO CON INDICATIONS: Chronic neck pain with right-sided radiculopathy TECHNIQUE: Noncontrast sagittal T1 spin echo and T2 fast spin echo, sagittal STIR, foraminal oblique sagittal T2 fast spin echo, and axial gradient echo or T2 fast spin echo through the cervical spine. COMPARISON: None. FINDINGS: Image quality: Excellent. Alignment and Curvature: There is normal bony alignment. Bone Marrow: Marrow demonstrates normal overall signal. Spinal Cord: Visualized spinal cord has normal size and signal. No cerebellar tonsillar herniation. Paraspinous Soft Tissues: No paravertebral masses. Prevertebral soft tissues are normal in thickness. C2-C3: No central canal stenosis. Facet and uncovertebral arthropathy. Mild left neural foraminal stenosis. No right neural foraminal stenosis. C3-C4: Disc desiccation. No central canal stenosis. Facet and uncovertebral arthropathy. Moderate right and mild left neural foraminal stenosis. C4-C5: Disc desiccation. No central canal stenosis. Facet and uncovertebral arthropathy. Mild bilateral neural foraminal stenosis. C5-C6: Disc desiccation height loss. Posterior disc osteophyte complex. Mild central canal stenosis. Facet uncovertebral arthropathy. Mild bilateral neural foraminal stenosis. C6-C7: Disc desiccation height loss. Posterior disc osteophyte complex abutting the ventral cord. Mild central canal stenosis. Facet and uncovertebral arthropathy. Severe right and mild left neural foraminal stenosis. C7-T1: No central canal or neural foraminal stenosis. IMPRESSION: 1. Degenerative changes of the cervical spine as described above. 2. Mild central canal stenosis at C5-C6 and C6-C7. 3. Severe right neural foraminal stenosis at C6-C7. Multilevel mild and moderate neural foraminal stenosis as above. Dictated by: Nolberto Salas M.D. on 05/09/2023 at 12:21 Approved by: Nolberto Salas M.D. on 05/09/2023 at 12:29
--- NOTE | 2023-05-09 09:11 | DI.US.S_ITS ---
PROCEDURE: US CAROTID DOPPLER BI INDICATIONS: CALCIFICATIONS SEEN ON XR TECHNIQUE: Color and pulse Doppler interrogation was performed of both carotid systems, with image documentation and velocity measurements. COMPARISON: [facility], US, US CAROTID DOPPLER BI, 05/02/2018, 12:34. FINDINGS: Stenosis calculations are based on SRU (Society of Radiologists in Ultrasound) criteria. Right side: Brachial blood pressure: 157/79 mm Hg. Common carotid artery peak systolic velocity: 108 cm/sec. Internal carotid artery peak systolic velocity: 130 cm/sec. Internal carotid artery end diastolic velocity: 25 cm/sec. External carotid artery peak systolic velocity: 74 cm/sec. ICA/CCA peak systolic ratio: 1.3 . Whitmore scale imaging description: Echogenic plaques in distal common carotid artery and carotid bifurcation Percent internal carotid artery stenosis: 50-69%. Vertebral artery: Flow direction is antegrade. Left side: Brachial blood pressure: 120/68 mm Hg. Common carotid artery peak systolic velocity: 115 cm/sec. Internal carotid artery peak systolic velocity: 80 cm/sec. Internal carotid artery end diastolic velocity: 20 cm/sec. External carotid artery peak systolic velocity: 127 cm/sec. ICA/CCA peak systolic ratio: 0.7 . Whitmore scale imaging description: Echogenic plaques distal common carotid artery and carotid bifurcation Percent internal carotid artery stenosis: Less than 50% . Vertebral artery: Flow direction is retrograde. IMPRESSION: 1. 50-69% right internal carotid artery stenosis, increased compared to the last exam. 2. Less than 50% left internal carotid stenosis. 3. Retrograde left vertebral artery flow and a thin medic blood pressures, suggesting subclavian steal. Dictated by: Aretha Gonzalez M.D. on 05/10/2023 at 10:30 Approved by: Aretha Gonzalez M.D. on 05/10/2023 at 10:35
== END ==
LOC: MRI 09:11
PROVIDERS: PCP Family Medicine; Referring Provider Family Medicine; Visit Provider Family Medicine
DX: C79.51 Secondary malignant neoplasm of bone (principal); C50.911 Malignant neoplasm of unspecified site of right female breast; I65.23 Occlusion and stenosis of bilateral carotid arteries; D18.02 Hemangioma of intracranial structures; M47.812 Spondylosis without myelopathy or radiculopathy, cervical region; M48.02 Spinal stenosis, cervical region; I25.10 Atherosclerotic heart disease of native coronary artery without angina pectoris; I25.84 Coronary atherosclerosis due to calcified coronary lesion; M54.2 Cervicalgia; R20.0 Anesthesia of skin; M54.9 Dorsalgia, unspecified; I10 Essential (primary) hypertension; G89.29 Other chronic pain
CPT/HCPCS: 72141; 93880

== ENCOUNTER → 2023-05-24 16:10 | Outpatient (CLI) | payer MEDICARE, OTHER, SELFPAY | PROVIDERS: PCP Family Medicine; Visit Provider Family Medicine | DX: R30.0 Dysuria (principal) | CPT/HCPCS: 87077; 87086; 87186 ==

== ENCOUNTER → 2023-08-05 14:05 | Outpatient (CLI) | payer MEDICARE, OTHER, SELFPAY ==
[2023-08-05 16:26] LABS: Vitamin D 25 Hydroxy (D3) 78.2 ng/mL (30.0-100.0)
== END ==
PROVIDERS: PCP Family Medicine; Referring Provider Family Medicine; Visit Provider Family Medicine
DX: E55.9 Vitamin D deficiency, unspecified (principal)
CPT/HCPCS: 36415; 82306

== ENCOUNTER → 2023-08-06 10:02 | Outpatient (CLI) | payer MEDICARE, OTHER, SELFPAY ==
[2023-08-06 12:45] LABS: BUN Creatinine Ratio 18.8 (6-22); Blood Urea Nitrogen 12 mg/dL (7-17); Calcium 9.2 mg/dL (8.4-10.2); Carbon Dioxide 27 mmol/L (22-32); Chloride 103 mmol/L (98-107); Estimated Glomerular Filt Rate > 60 mL/min (>60); Glucose 103 mg/dL (80-110); HEMOLYSIS < 15 (0-50); Potassium 4.6 mmol/L (3.4-5.1); Sodium 135 mmol/L (137-145); Triglycerides 84 mg/dL (35-150)
[2023-08-06 13:07] LABS: HDL Cholesterol 151 mg/dL (40-60)
[2023-08-06 15:38] LABS: Cholesterol 278 mg/dL (140-199); LDL Cholesterol Calculated 110 mg/dL (<100)
[2023-08-07 05:03] LABS: Apolipoprotein B 120 mg/dL (<90)
== END ==
PROVIDERS: PCP Family Medicine; Referring Provider Family Medicine; Visit Provider Family Medicine
DX: I25.10 Atherosclerotic heart disease of native coronary artery without angina pectoris (principal); I25.84 Coronary atherosclerosis due to calcified coronary lesion; I70.0 Atherosclerosis of aorta; I10 Essential (primary) hypertension; E78.5 Hyperlipidemia, unspecified
CPT/HCPCS: 36415; 80048; 80061; 82172; 83695

== ENCOUNTER → 2023-09-11 08:38 | Outpatient (CLI) | payer MEDICARE, OTHER, SELFPAY ==
--- NOTE | 2023-09-11 08:41 | DI.NM.S_ITS ---
PROCEDURE: NM PAIGE PERF SPECT REST & STR Rest and exercise myocardial perfusion SPECT with gated imaging and ejection fraction RADIOPHARMACEUTICAL: 11.4 mCi Tc-99m sestamibi IV at rest and 27.0 mCi Tc-99m sestamibi IV at peak exercise. A one day-protocol was performed. INDICATIONS: CAD risk stratification TECHNIQUE: Radiopharmaceutical was injected at peak stress test, and also at rest. SPECT images were obtained. SPECT myocardial perfusion images were displayed in short axis, horizontal long axis, and vertical long axis views. Gated images were reviewed using Net[employer] software. COMPARISON: None. CARDIAC STRESS: A standard Lopez treadmill exercise tolerance test was performed by the patient under the supervision of an attending staff. The patient exercised for 5 minutes and 19 seconds; functional aerobic impairment (NATHAN) is -19%. Hemodynamic data: There is normal blood pressure and heart rate response to exercise stress. Patient achieved 118% of maximum predicted heart rate at peak exercise. Symptoms: Patient denied chest pain during exercise. EKG: No diagnostic EKG changes of ischemia; frequent PACs throughout the study. FINDINGS: Raw data: There is good myocardial labeling by radiotracer. No significant motion artifacts. Left ventricle function: Gated images demonstrate normal left ventricle wall thickening. No segmental wall motion abnormality. No transient ischemic dilation; TID is 1.0 (normal less than 1.3). The left ventricle resting end-diastolic volume is 71 mL. Left ventricle stress ejection fraction is 78%; normal values are above 45%. Myocardial perfusion: There is normal distribution of activity in the left and right ventricular myocardium. No fixed or reversible perfusion defects. SSS 0. IMPRESSION: Low risk, normal treadmill nuclear stress test from inducible ischemia standpoint. 1) No perfusion evidence of ischemia or infarction. 2) Normal left ventricular size, wall motion, and systolic function (EF post stress 78%). 3) No diagnostic ST changes during exercise or recovery. 4) Frequent PACs throughout the study. 5) No angina during the study. 6) Good exercise tolerance (7.0METs, NATHAN -19%). Target heart rate reached. Appropriate BP response to exercise. 7) No prior nuclear stress test available for comparison. Dictated by: Cyn Diaz MD on 09/12/2023 at 17:01 Approved by: Cyn Diaz MD on 09/12/2023 at 17:05
== END ==
LOC: NUCM 08:39
PROVIDERS: PCP Family Medicine; Referring Provider Family Medicine; Visit Provider Family Medicine
DX: I25.10 Atherosclerotic heart disease of native coronary artery without angina pectoris (principal); I25.84 Coronary atherosclerosis due to calcified coronary lesion
CPT/HCPCS: 78452; 93017; A9502

== ENCOUNTER → 2023-10-09 14:13 | Outpatient (CLI) | payer MEDICARE, OTHER, SELFPAY ==
[2023-10-09 14:42] LABS: Appearance Urine UA CLEAR; Bilirubin Urine UA NEGATIVE (NEGATIVE); Color Urine UA YELLOW; Glucose Urine UA NEGATIVE (Negative); Ketones Urine UA NEGATIVE (NEGATIVE); Leukocyte Esterase Urine UA 2+ (NEGATIVE); Nitrite Urine UA NEGATIVE (Negative); Occult Blood Urine UA TRACE-INTACT (Negative); Protein Urine UA NEGATIVE (Negative); Specific Gravity Urine UA <=1.005 (1.000-1.035); Urobilinogen Urine UA 0.2 E.U./dL (0.2)
[2023-10-09 14:45] LABS: Urine Volume 10mL (spun)
[2023-10-09 14:46] LABS: Bacteria Urine None Seen; Culture Indicated Urine Specimen Cultured; RBC Urine None Seen (0-5/HPF); Squamous Epithelial Cell Urine 1-5 /HPF (0-5/HPF); WBC Urine 5-10/HPF (0-5/HPF)
== END ==
LOC: LAB 14:14
PROVIDERS: PCP Family Medicine; Referring Provider Family Medicine; Visit Provider Family Medicine
DX: R35.0 Frequency of micturition (principal)
CPT/HCPCS: 81001; 87086

== ENCOUNTER → 2023-10-29 | Outpatient (CLI) | payer MEDICARE, OTHER, SELFPAY ==
--- NOTE | 2023-10-29 14:43 | DI.US.S_ITS ---
PROCEDURE: BREAST LT LIMITED COMPARISON: [facility], BREAST LT LIMITED, 05/27/2020, 13:31. INDICATIONS: LEFT BREAST LUMP FINDINGS: IMPRESSION: Dictated by: Idalia Serrano M.D.,Ph.D. on 10/29/2023 at 15:33 Approved by: Idalia Serrano M.D.,Ph.D. on 10/29/2023 at 15:46
--- NOTE | 2023-10-29 15:13 | DI.US.S_ITS ---
Patient Name: ANTELMO PANTOJA date: 1950 Sex: F Attending Physician: Mansoor Indications: Date: 10/29/2023 15:46 At the request of: IMELDA ROBBINS Procedure: US breast LT limited LIMITED ULTRASOUND OF LEFT BREAST: 10/29/2023 CLINICAL: Palpable left breast lump. Comparison is made to exams dated: 06/03/2020 stereotactic biopsy - [facility], 05/27/2020 ultrasound, 05/12/2020 breast MRI, 05/03/2020 ultrasound, 05/03/2020 mammogram, and 11/06/2017 ultrasound - [facility]. Color flow and real-time ultrasound of the left breast 12 o'clock region were performed. Whitmore scale images of the real-time examination were reviewed. There is a 2.6 cm x 1.8 cm x 1.9 cm irregular mass with a spiculated margin in the left breast at 12 o'clock posterior depth 4 cm from the nipple. This irregular mass is hypoechoic. This correlates as palpated. IMPRESSION: INCOMPLETE: NEEDS ADDITIONAL IMAGING EVALUATION Left breast 2.6 cm irregular mass at 12 o'clock corresponding to area of clinical palpable concern. Recommend diagnostic mammogram for further evaluation. Patient will return on different day for the mammogram and additional possible ultrasound. Findings and recommendations were conveyed to the patient during today's evaluation. This exam was interpreted at Station ID: [id number]. Electronically Signed By: Idalia Serrano M.D., Ph.D. eb/:10/29/2023 15:46:16 copy to: IGNACIA VALENZUELA Continued Report - Page 2 of 2 Patient Name: ANTELMO PANTOJA date: 1950 Sex: F Attending Physician: Mansoor Indications: Date: 10/29/2023 15:46 At the request of: IMELDA ROBBINS Procedure: US breast LT limited letter sent: Additional Imaging Needed Ultrasound BI-RADS: 0 Indeterminate
== END ==
PROVIDERS: PCP Family Medicine; Referring Provider Nurse Practitioner; Visit Provider Nurse Practitioner
DX: R92.8 Other abnormal and inconclusive findings on diagnostic imaging of breast (principal); C50.919 Malignant neoplasm of unspecified site of unspecified female breast; N63.25 Unspecified lump in the left breast, overlapping quadrants
CPT/HCPCS: 76642

== ENCOUNTER → 2023-11-05 | Outpatient (CLI) | payer MEDICARE, OTHER, SELFPAY ==
--- NOTE | 2023-11-05 12:02 | DI.MG.S_ITS ---
BILATERAL DIGITAL DIAGNOSTIC MAMMOGRAM 3D/2D: 11/05/2023 CLINICAL: Follow up Ultrasound. Breast cancer. Comparison is made to exams dated: 06/03/2020 stereotactic biopsy - [facility] and 10/29/2023 ultrasound - [facility]. Both breasts are heterogeneously dense, which may obscure small masses (category c / 51-75% glandular tissue). There are stable post surgical changes in the right breast breast. There is a 3.2 cm irregular mass with a spiculated margin in the left breast at 12 o'clock middle depth. This correlates with area of clinical concern and previously seen left breast mass at 12 o'clock, 4 cm from the nipple on ultrasound 10/29/2023. There is a biopsy clip seen within this mass corresponding to known malignancy. Previously the mass measured 1.6 cm on mammogram 08/17/2020. No other masses, calcifications, or significant findings are seen in either breast. IMPRESSION: KNOWN BIOPSY PROVEN MALIGNANCY Left breast 3.2 cm spiculated mass at 12 o'clock middle depth, increased in size since 2020 and corresponding to area of clinical concern. Finding corresponds to biopsy proven malignancy with biopsy clip at site. Recommend clinical follow-up with oncological /surgical treatment team. Findings and recommendations were conveyed to the patient during today's evaluation. This exam was interpreted at Station ID: [id number]. NOTE: For mammograms, a report in lay terms will be sent to the patient. Approximately 15% of breast malignancies will not be visualized mammographically. In the management of a palpable breast mass, a negative mammogram must not discourage biopsy of a clinically suspicious lesion. Electronically Signed By: Idalia Serrano M.D., Ph.D. eb/:11/07/2023 09:22:29 copy to: YUNG BELTRAN letter sent: Clinical Evaluation ACR BI-RADS Category 6: Known biopsy proven malignancy [id number]
== END ==
PROVIDERS: PCP Family Medicine; Referring Provider Family Medicine; Visit Provider Family Medicine
DX: C50.812 Malignant neoplasm of overlapping sites of left female breast (principal); R92.333 Mammographic heterogeneous density, bilateral breasts
CPT/HCPCS: 77066; G0279

== ENCOUNTER → 2023-11-28 13:15 | Outpatient (CLI) | payer MEDICARE, OTHER, SELFPAY ==
[2023-11-28 13:41] LABS: Appearance Urine UA CLEAR; Bilirubin Urine UA NEGATIVE (NEGATIVE); Color Urine UA YELLOW; Glucose Urine UA NEGATIVE (Negative); Ketones Urine UA NEGATIVE (NEGATIVE); Leukocyte Esterase Urine UA 3+ (NEGATIVE); Nitrite Urine UA POSITIVE (Negative); Occult Blood Urine UA 3+ (Negative); Protein Urine UA 2+ (Negative); Urobilinogen Urine UA 0.2 E.U./dL (0.2)
[2023-11-28 13:46] LABS: pH Urine UA 6.5 (4.5-8.0)
[2023-11-28 13:55] LABS: Bacteria Urine Few (2-10); Culture Indicated Urine Specimen Cultured; RBC Urine 10-30/HPF (0-5/HPF); Squamous Epithelial Cell Urine None Seen (0-5/HPF); Urine Volume 10mL (spun); WBC Urine 30-100/HPF (0-5/HPF)
== END ==
LOC: LAB 13:16
PROVIDERS: PCP Family Medicine; Referring Provider Family Medicine; Visit Provider Family Medicine
DX: R39.15 Urgency of urination (principal)
CPT/HCPCS: 81001; 87077; 87086; 87186

== ENCOUNTER → 2024-07-27 08:30 | Outpatient (CLI) | payer MEDICARE, OTHER, SELFPAY ==
[2024-07-27 10:00] LABS: Cholesterol 291 mg/dL (140-199); Triglycerides 102 mg/dL (35-150)
[2024-07-27 10:09] LABS: HDL Cholesterol 139 mg/dL (40-60); LDL Cholesterol Calculated 132 mg/dL (<100)
[2024-07-27 10:29] LABS: TSH w/ Reflex to FT4 2.21 uIU/mL (0.47-4.68)
[2024-08-04 14:43] LABS: Fecal Immunochemical Test Negative
== END ==
PROVIDERS: PCP Family Medicine; Referring Provider Family Medicine; Visit Provider Family Medicine
DX: I10 Essential (primary) hypertension; I25.10 Atherosclerotic heart disease of native coronary artery without angina pectoris; M54.12 Radiculopathy, cervical region; C50.911 Malignant neoplasm of unspecified site of right female breast; M54.9 Dorsalgia, unspecified; C79.51 Secondary malignant neoplasm of bone; Z12.11 Encounter for screening for malignant neoplasm of colon; E78.5 Hyperlipidemia, unspecified
CPT/HCPCS: 36415; 80061; 82274; 84443

== ENCOUNTER → 2024-08-05 15:32 | Outpatient (CLI) | payer MEDICARE, OTHER, SELFPAY ==
--- NOTE | 2024-08-05 15:36 | DI.RAD.S_ITS ---
PROCEDURE: XR KNEE RT 3V INDICATIONS: BILATERAL KNEE PAIN TECHNIQUE: 3 views of the knee were acquired. COMPARISON: None. FINDINGS: Bones: No fractures or dislocations. Chondrocalcinosis. Tricompartment small osteophytes. Relative joint space preservation. No weight-bearing imaging provided. No suspicious bony lesions. Soft tissues: No joint effusion. No suspicious soft tissue calcifications. IMPRESSION: CPPD arthropathy. Dictated by: Pola Norris M.D. on 08/06/2024 at 9:37 Approved by: Pola Norris M.D. on 08/06/2024 at 9:37
--- NOTE | 2024-08-05 15:36 | DI.RAD.S_ITS ---
PROCEDURE: XR KNEE LT 3V INDICATIONS: BILATERAL KNEE PAIN TECHNIQUE: 3 views of the knee were acquired. COMPARISON: None. FINDINGS: Bones: No fractures or dislocations. Chondrocalcinosis. Tricompartment osteophytes. Relative joint space preservation. No weight-bearing imaging provided. No suspicious bony lesions. Soft tissues: No joint effusion. No suspicious soft tissue calcifications. IMPRESSION: CPPD arthropathy. Dictated by: Pola Norris M.D. on 08/06/2024 at 9:35 Approved by: Pola Norris M.D. on 08/06/2024 at 9:37
[2024-08-05 16:33] LABS: Vitamin D 25 Hydroxy (D3) 75.2 ng/mL (30.0-100.0)
== END ==
PROVIDERS: PCP Family Medicine; Referring Provider Family Medicine; Visit Provider Family Medicine
DX: E55.9 Vitamin D deficiency, unspecified (principal); M12.862 Other specific arthropathies, not elsewhere classified, left knee; M12.861 Other specific arthropathies, not elsewhere classified, right knee
CPT/HCPCS: 73562; 82306

== ENCOUNTER → 2024-08-31 15:48 | Outpatient (CLI) | payer MEDICARE, OTHER, SELFPAY ==
--- NOTE | 2024-08-31 15:50 | DI.US.S_ITS ---
PROCEDURE: US CAROTID DOPPLER BI INDICATIONS: carotid artery stenosis TECHNIQUE: Color and pulse Doppler interrogation was performed of both carotid systems, with image documentation and velocity measurements. COMPARISON: [facility], [place], US CAROTID DOPPLER BI, 05/09/2023, 10:22. FINDINGS: Stenosis calculations are based on SRU (Society of Radiologists in Ultrasound) criteria. Right side: Brachial blood pressure: 140/75 mm Hg. Common carotid artery peak systolic velocity: 90 cm/sec. Internal carotid artery peak systolic velocity: 188 cm/sec. Internal carotid artery end diastolic velocity: 46 cm/sec. External carotid artery peak systolic velocity: 39 cm/sec. ICA/CCA peak systolic ratio: 2.1 . Whitmore scale imaging description: Echogenic vascular calcifications in distal common carotid artery and at carotid bifurcation unchanged. Percent internal carotid artery stenosis: 50-69% . Vertebral artery: Flow direction is antegrade. Left side: Brachial blood pressure: 91/67 mm Hg. Common carotid artery peak systolic velocity: 99 cm/sec. Internal carotid artery peak systolic velocity: 91 cm/sec. Internal carotid artery end diastolic velocity: 21 cm/sec. External carotid artery peak systolic velocity: 66 cm/sec. ICA/CCA peak systolic ratio: 0.7 . Whitmore scale imaging description: Echogenic calcification plaque distal common carotid artery and carotid bifurcation unchanged Percent internal carotid artery stenosis: Less than 50% . Vertebral artery: Flow direction is retrograde IMPRESSION: 1. In the right carotid artery, there is 50-69 % stenosis based on peak systolic velocity criteria. 2. In the left carotid artery, there is less than 50% stenosis based on peak systolic velocity criteria. 3. Retrograde left vertebral artery flow suggest left subclavian steal phenomenon unchanged from the prior exam. Dictated by: Jason Alexandra M.D. on 09/01/2024 at 9:39 Approved by: Jason Alexandra M.D. on 09/01/2024 at 9:49
== END ==
PROVIDERS: PCP Family Medicine; Referring Provider Family Medicine; Visit Provider Family Medicine
DX: I65.23 Occlusion and stenosis of bilateral carotid arteries (principal)
CPT/HCPCS: 93880

== ENCOUNTER → 2024-09-24 15:37 | Outpatient (CLI) | payer MEDICARE, OTHER, SELFPAY ==
[2024-09-24 17:18] LABS: Add Manual Diff / Slide Review NO; Hematocrit 45.5 % (36-46); Hemoglobin 15.5 g/dL (12.0-16.0); Lymphocytes Absolute Auto 1200 /uL (1100-4500); Mean Corpuscular HGB Conc 34.0 % (30-36); Mean Corpuscular Hemoglobin 33.7 PG (26-34); Mean Corpuscular Volume 99.2 fL (80-100); Platelet Count 182 X10^3/uL (150-400)
[2024-09-24 17:44] LABS: Alanine Aminotransferase 29 IU/L (<35); Albumin 4.7 g/dL (3.5-5.0); Albumin Globulin Ratio 1.7 (1.0-2.8); Alkaline Phosphatase 76 U/L (38-126); Blood Urea Nitrogen 15 mg/dL (7-17); Calcium 10.0 mg/dL (8.4-10.2); Carbon Dioxide 25 mmol/L (22-32); Chloride 100 mmol/L (98-107); Estimated Glomerular Filt Rate > 60 mL/min (>60); Globulin 2.7 g/dL (1.7-4.1); Glucose 105 mg/dL (70-99); HEMOLYSIS < 15 (0-50); Potassium 4.0 mmol/L (3.4-5.1); Sodium 135 mmol/L (137-145); Total Protein 7.4 g/dL (6.3-8.2)
[2024-09-24 18:14] LABS: Carcinoembryonic Antigen 3.5 ng/mL (0.1-3.0)
[2024-09-26 07:08] LABS: CA 15-3 26.3 U/mL (0.0-25.0)
== END ==
PROVIDERS: PCP Family Medicine; Referring Provider Internal Medicine Medical Oncology; Visit Provider Internal Medicine Medical Oncology
DX: C50.919 Malignant neoplasm of unspecified site of unspecified female breast (principal)
CPT/HCPCS: 36415; 80053; 82378; 85025; 86300

== ENCOUNTER → 2024-12-16 15:10 | Outpatient (CLI) | payer MEDICARE, OTHER, SELFPAY | PROVIDERS: PCP Family Medicine; Visit Provider Physician Assistant | DX: R30.0 Dysuria (principal) | CPT/HCPCS: 81002; 87077; 87086; 87186 ==